=== PATIENT | female | born 1955 | race Caucasian/White ===

== ENCOUNTER 2017-03-09 12:39 | Inpatient (IN) | payer MEDICARE ==
[~2017-03-09] VITALS: Ht 162.6 cm; Wt 99.9 kg
--- NOTE | ~2017-03-09 | DS ---
PATIENT:BIA SMILEY :57 MEDICAL RECORD: [id number] DISCHARGE SUMMARY ADMISSION DATE: 03/10/17 DISCHARGE DATE: 03/12/17 DISCHARGE SUMMARY PROBLEM LIST: 1. Angina. 2. Coronary artery disease. 3. Percutaneous transluminal coronary angioplasty stent left anterior descending this admission. 4. Hypertension. 5. Hyperlipidemia. HOSPITAL COURSE: The patient presents with anginal symptomatology. She was found to have critical disease of the left anterior descending and underwent successful percutaneous transluminal coronary angioplasty stent of the left anterior descending. PLAN: She was discharged home with the addition of aspirin, Plavix, and Pravachol to her medical regimen. She will follow up with [facility] in one month. ZULEMA PALMA MD CC: [id number] DICTATION DATE: 03/12/172149 MANAGER URGENT CARE: DAPHNIE 03/12/172149 DIS IN 03/12/17 [facility] [address] [place] [address]
--- NOTE | ~2017-03-09 | HEMODYNAMI ---
PATIENT:BIA SMILEY MEDICAL RECORD: [id number] : 57 LOCATION:[facility] [address] [place], [place] [address]T# [id number] ADMISSION DATE: 03/09/17 Generatedon:03/10/201710:52 Patient name: BIA SMILEY Patient #: [id number] SSN: DO B: 1955 Date of study: 03/10/2017 Page: Of Hemodynamic Procedure Report Patient Data Patient Demographics Procedure consent was obtained First Name: BIA Gender: Female Last Name: SHERICE : 1955 [facility] Initial: M Age: 61 year(s) Patient #: [id number] Race: Unknown Additional ID: [id number] Contact details Address: [address] [place] [address] State: [place] City: [place] Zip code: [address] Past Medical History Allergies Allergen Reaction Date Comments Reported Sulfa drugs 03/10/2017 Admission Admission Data Admission Date: 03/09/2017 Admission Time: 14:55 Room #: [facility]0 Height (in.): 64 BSA: 2.02 (m2) Height (cm.): 162.56 BMI: 37.09 (kg/m2) Weight (lbs.): 216.05 Weight (kg.): 98 Lab Results Lab Result Date: 03/10/2017 Lab Result Time: 0:00 Biochemistry Name Units Result Min Max BUN mg/dl 18 --(---*)-- 7 18 CK-MB ng/ml 0.4 --(*---)-- 0 3.6 Creatinine mg/dl 1 --(--*-)-- 0.6 1.3 Creatinine l 42 --(*---)-- 21 215 Kinase Troponin l ng/ml 0.017 --(-*--)-- 0 0.06 CBC Name Units Result Min Max Hemoglobin g/dl 12.7 -*(----)-- 13.5 17.5 Procedure Procedure Types Cath Procedure Diagnostic Procedure [facility] w/Coronaries PCI Procedure Coronary Stent Initial Miscellaneous Procedures Moderate Sedation up to 30 minutes Procedure Description Procedure Date Procedure Date: 03/10/2017 Procedure Start Time: 9:58 Procedure End Time: 10:23 Procedure Staff Name Function Juwan Jamison RT Monitor Jonathan Snell RN Office Rep Chris Gee RT Scrub Twan Sandoval MD Performing Physician Christin Dominguez RN Nurse Procedure Data Cath Procedure Fluoroscopy Diagnostic fluoroscopy Total fluoroscopy Time: 5.4 time: 5.4 min min Diagnostic fluoroscopy Total fluoroscopy dose: dose: 1327 mGy 1327 mGy Contrast Material Contrast Material Type Amount (ml) Isovue 300 183 Entry Location Entry Primary Successful Side Size Upsize Upsize Entry Closure Erickson ccessful Closure Location (Fr) 1 (Fr) 2 (Fr) Remarks Device Remarks Radial Right 6 Fr Mechanical artery Short Compression Femoral Right 5 Fr 6 Fr Exoseal artery Short Estimated blood loss: 10 ml Diagnostic catheters Device Type Used For End Catheter Placement Diagnostic Terumo 5Fr Procedure Redding 110cm catheter Cordis 5Fr Pigtail Procedure Catheter (MP) Cordis 5Fr JL 4.0 Procedure Catheter (MP) Cordis 5Fr 3DRC Catheter Procedure (MP) Procedure Complications No complications Procedure Medications Medication Administration Route Dosage Oxygen NC 2 l/min Heparin Flush Bag added to field 2 bags (1000units/500ml NS) Lidocaine 2% added to field 20 Radial Cocktail added to field 1 syringe (Verapomil 2mg/Nitro 400mcg/Heparin 1500units) Radial Cocktail I.A. 1 syringe (Verapomil 2mg/Nitro 400mcg/Heparin 1500units) Versed I.V. 1 mg Fentanyl I.V. 50 mcg Versed I.V. 1 mg Fentanyl I.V. 50 mcg Versed I.V. 1 mg Fentanyl I.V. 50 mcg Heparin Bolus I.V. 4000 units Lopressor I.V. 5 mg Plavix P.O. 75 mg Morphine I.V. 4 mg Zofran I.V. 4 mg Integrilin (Bolus I.V. 9 ml 2mg/ml) Integrilin (Bolus wasted 1 ml 2mg/ml) unlisted medication Hemodynamics Rest BSA: 2.02 (m2) HGB: 12.7 (g/dl) O2 Consumption: Estimated: 221.91 (ml/min) O2 Co nsumption indexed: Estimated:109.86 (ml/min/m) Heart Rate: 110 (bpm) Pressure Samples Time Site Value (mmHg) Purpose Heart Use Rate(bpm) 10:08 AO 141/83(107) Snapshot 107 Snapshots Pre Cath Intra NCS Post Cath Vital Signs Time Heart Resp SPO2 NIBP (mmHg) Rhythm Pain Status Sedation Rate (ipm) (%) Level (bpm) 9:37:22 109 [address] 0 (11) , No 10(A) pain 9:40:22 106 16 98 185/153(167) ST 4 (11) , 10(A) Distressing 9:44:42 107 13 97 197/119(152) ST 0 (11) , No 10(A) pain 9:49:07 106 14 98 194/126(156) ST 0 (11) , No 10(A) pain 9:53:31 103 14 96 176/114(139) ST 0 (11) , No 10(A) pain 9:57:47 108 15 98 191/122(146) ST 0 (11) , No 9(A) pain 10:02:03 112 15 96 172/111(128) ST 0 (11) , No 9(A) pain 10:06:17 109 14 98 162/123(140) ST 0 (11) , No 9(A) pain 10:10:29 100 14 100 166/110(148) ST 0 (11) , No 9(A) pain 10:15:28 [address] 0 (11) , No 9(A) pain 10:15:46 100 20 97 189/144(175) ST 0 (11) , No 10(A) pain 10:18:03 101 18 98 192/145(162) ST 0 (11) , No 10(A) pain 10:22:26 100 11 97 210/145(179) ST 0 (11) , No 10(A) pain 10:31:22 97 25 96 214/156(183) ST 4 (11) , 10(A) Distressing 10:38:20 97 16 96 199/136(164) ST 4 (11) , 10(A) Distressing 10:41:59 96 23 97 181/120(156) ST 1 (11) , 10(A) Very mild Medications Time Medication Route Dose Verified Delivered Reason Note s Effectiveness by by 9:34:57 Oxygen NC 2 l/min Twan Christin Per physician Jaime Dominguez RN 9:35:05 Heparin Flush added 2 bags Twan Trent used for Bag to Jaime Sandoval MD procedure (1000units/500ml field NS) 9:35:15 Lidocaine 2% added 20ml Twan Twan used for to vial Jaime Sandoval MD procedure field 9:35:37 Radial Cocktail added 1 Twan Trent used for (Verapomil to syringe Jaime Sandoval MD procedure 2mg/Nitro field 400mcg/Hepari 9:50:18 Versed I.V. 1 mg Twan Christin for sedation Jaime Dominguez RN 9:50:25 Fentanyl I.V. 50 mcg Twan Christin for sedation Jaime Dominguez RN 9:52:27 Versed I.V. 1 mg Twan Christin for sedation Jaime Dominguez RN 9:52:41 Fentanyl I.V. 50 mcg Twan Christin for sedation Jaime Dominguez RN 9:54:55 Versed I.V. 1 mg Twan Christin for sedation Jaime Dominguez RN 9:56:04 Fentanyl I.V. 50 mcg Twan Christin for sedation Jaime Dominguez RN 9:58:36 Radial Cocktail I.A. 1 Twan Trent for (Verapomil syringe Jaime Sandoval MD vasodilation 2mg/Nitro 400mcg/Hepari 10:05:13 Heparin Bolus I.V. 4000 Twan Christin for dose units Jaime Dominguez RN anticoagulation verified wt dr sandoval 10:06:43 Lopressor I.V. 5 mg Twan Christin Per physician Jaime Dominguez RN 10:17:04 Plavix P.O. 75 mg Twan Christin for Jaime Dominguez RN antiplatelet therapy 10:35:56 Morphine I.V. 4 mg Twan Christin Per physician Jaime Dominguez RN 10:37:13 Zofran I.V. 4 mg Twan Christin Per physician Jaime Dominguez RN 10:43:22 Integrilin I.V. 9 ml Twan Christin Per physician (Bolus 2mg/ml) Jaime Dominguez RN 10:43:30 Integrilin wasted 1 ml Twan Christin Per physician (Bolus 2mg/ml) Jaime Dominguez RN 10:48:12 pt condition pt r eports feeling better at this time, reports significant decrease in chest pain, is no longer anxious. pt is not diaphoretic at this time. physician at bedside and aware of pt improved condition. pt will be monitored in PCR for 1 hour following procedure, prior to transfer to floor. Procedure Log Time Note 9:10:59 Jonatahn Snell RN sent for patient. Start room use. 9:17:52 Diagnostic Cath status Urgent 9:17:56 ACC Patient presents with Unstable Angina CCS Anginal Class 3--Marked limitation of physical activity, angina occurs with ordinary activity.. 9:18:07 Time tracking: Regular hours 9:18:12 Plan of Care:Hemodynamics will remain stable., Cardiac rhythm will remain stable., Comfort level will be maintained., Respiratory function will remain adequate., Patient/ family verbilizes understanding of procedure., Procedure tolerated without complication., Recovers from procedure without complications.. 9:18:50 Lab Result : Creatinine Kinase 42 l 9:18:50 Lab Result : Troponin l 0.017 ng/ml 9:18:50 Lab Result : Hemoglobin 12.7 g/dl 9:18:50 Lab Result : BUN 18 mg/dl 9:18:50 Lab Result : Creatinine 1 mg/dl 9:18:50 Lab Result : CK-MB 0.4 ng/ml 9:25:03 Patient Height : 162.56 cm 9:25:07 Patient Weight : 98 kg 9:26:28 Warm blankets applied, and satnam hugger turned on for patient comfort. 9:26:28 Patient received from PCU to CCL 2 Alert and oriented. Tansferred to table in Supine position. 9:26:29 Correct patient and procedure confirmed by team. 9:26:30 ECG and BP/O2 sat monitors applied to patient. 9:26:30 Signed procedure consent form obtained from patient. 9:34:57 Oxygen 2 l/min NC was administered by Christin Dominguez RN; Per physician; 9:35:05 Heparin Flush Bag (1000units/500ml NS) 2 bags added to field was administered by Twan Sandoval MD; used for procedure; 9:35:15 Lidocaine 2% 20ml vial added to field was administered by Twan Sandoval MD; used for procedure; 9:35:37 Radial Cocktail (Verapomil 2mg/Nitro 400mcg/Heparin 1500units) 1 syringe added to field was administered by Twan Sandoval MD; used for procedure; 9:35:39 Vital chart was started 9:43:04 Baseline sample Acquired. 9:43:12 Rhythm: sinus tachycardia 9:43:13 Full Disclosure recording started 9:43:25 H&P Date Dictated: 03/10/2017 Within 30 days and on chart.. 9:43:26 Pre-op teaching completed and patient verbalized understanding. 9:43:26 Pre-procedure instructions explained to patient. 9:43:29 Family in patients room. 9:43:31 Patient NPO since Midnight. 9:43:33 Is the patient allergic to Iodine/contrast media? No. 9:43:43 Patient allergic to Sulfa drugs 9:43:47 Is patient on blood thinner?Yes 9:43:49 ACC The patient was administered the following blood thiners within the last 24 hours: ACCPlavix 9:43:51 Patient diabetic? Yes. 9:43:53 If diabetic: On Metformin? Yes 9:43:55 If on Metformin: Last Dose? 03/08/2017 9:43:57 Patient not . Patient is over age 56. 9:44:00 Previous problem with sedation/anesthesia? No ? 9:44:02 Snore? Yes 9:44:03 Deviated septum? No 9:44:03 Sleep apnea? No 9:44:04 Opens mouth fully? Yes 9:44:05 Sticks out tongue? Yes 9:44:06 Airway obstruction? No ? 9:44:09 Dentures? Yes IN 9:44:12 Pre procedure: right dorsailis pedis pulse 1+ Palpable, but thready & weak; easily obliterated 9:44:27 Modified Frankie's test Ulnar < 7 seconds 9:44:32 Patient pain scale 4/10 Physician observed.. 9:44:48 IV patent on arrival in left antecubital with 0.9% NaCl at KVO. 9:45:04 Lab results completed and on chart. 9:45:08 Right Radial & Right Groin area was prepped with chlora-prep and draped in sterile fashion 9:45:09 Sharps counted by scrub and verified by R.N. :45:09 Alarms reviewed by R. N. 9:45:14 Use device set Radial Dx 9:45:16 Tegaderm 4 x 4 opened to sterile field. 9:45:17 Acist Manifold opened to sterile field. 9:45:17 Acist Hand Control opened to sterile field. 9:45:18 Acist Syringe opened to sterile field. 9:45:19 Bag Decanter opened to sterile field. 9:45:19 Medline Cath Pack opened to sterile field. 9:45:20 St Gary 260cm J .035 wire opened to sterile field. 9:45:20 Terumo 6Fr Slender Glidesheath opened to sterile field. 9:45:21 MBrace Wrist Support opened to sterile field. 9:48:37 Zero performed for pressure channel P1 9:50:08 --------ALL STOP TIME OUT------ 9:50:09 Final Timeout: patient, procedure, and site verified with staff and physician. All members of the team are in agreement. 9:50:11 Right Radial & Right Groin site verified by team. 9:50:14 Physical assessment completed. ASA score P 2 - A patient with mild systemic disease as per Twan Sandoval MD. 9:50:16 Sedation plan: IV Moderate Sedation Versed, Fentanyl 9:50:18 Versed 1 mg I.V. was administered by Christin Dominguez RN; for sedation; 9:50:25 Fentanyl 50 mcg I.V. was administered by Christin Dominguez RN; for sedation; 9:52:27 Versed 1 mg I.V. was administered by Christinchapincito Dominguez RN; for sedation; 9:52:41 Fentanyl 50 mcg I.V. was administered by Christinchapincito Dominguez RN; for sedation; 9:54:55 Versed 1 mg I.V. was administered by Christinchapincito Dominguez RN; for sedation; 9:56:04 Fentanyl 50 mcg I.V. was administered by Christinchapincito Dominguez RN; for sedation; 9:57:57 Procedure started. 9:58:00 Local anesthetic to right radial artery with Lidocaine 2% by Twan Sandoval MD.INITIAL ACCESS ONLY 9:58:29 A 6 Fr Short sheath was inserted into the Right Radial artery 9:58:36 Radial Cocktail (Verapomil 2mg/Nitro 400mcg/Heparin 1500units) 1 syringe I.A. was administered by Twan Sandoval MD; for vasodilation; 9:58:42 A Diagnostic Terumo 5Fr Redding 110cm catheter was advanced over the wire and used for Procedure. 9:59:26 Unable to advance catheter due to radial loop. 9:59:33 Catheter removed. 10:00:12 Terumo 5Fr Marathon Sheath opened to sterile field. 10:00:19 Local anesthetic to right femoral artery with Lidocaine 2% by Twan Sandoval MD.ADDITIONAL ACCESS 10:00:41 A 5 Fr sheath was inserted into the Right Femoral artery 10:00:43 Use device set Multipack Set 10:00:45 Diagnostic Infinity 5Fr Multipack catheter opened to sterile field. 10:00:54 A Cordis 5Fr Pigtail Catheter (MP) was advanced over the wire and used for Procedure. 10:01:29 LV angiography performed. 10:01:30 LV gram done using LARA 10:01:34 EF : 55 % 10:01:37 Injector settings: Ml/sec: 10, Volume: 20, 10:01:38 Catheter removed. 10:02:00 A Cordis 5Fr JL 4.0 Catheter (MP) was advanced over the wire and used for Procedure. 10:02:16 LCA angiography performed. 10:02:37 Catheter removed. 10:03:22 Terumo 6Fr Marathon Sheath opened to sterile field. 10:03:29 TabTale BasixCompak Inflation Kit opened to sterile field. 10:03:29 Salazar Whisper J 300cm 0.014 guide wire opened to sterile field. 10:03:42 Sheath upsized to a 6 Fr Short. 10:03:47 A Cordis 5Fr 3DRC Catheter (MP) was advanced over the wire and used for Procedure. 10:04:39 RCA angiography performed. 10:04:55 Catheter removed. 10:05:11 ACC PCI Site: mLAD has 95% stenosis. 10:05:13 Heparin Bolus 4000 units I.V. was administered by Christin Dominguez RN; for anticoagulation; dose verified wtih dr sandoval 10:05:13 ACC Pre-intervention MAYI Flow is 3. 10:05:34 6 Fr XBLAD 3.5 guide catheter was inserted over the wire 10:05:40 Cordis 6FR XBLAD 3.5 guide catheter opened to sterile field. 10:06:19 Whisper wire advanced. 10:06:43 Lopressor 5 mg I.V. was administered by Christin Dominguez RN; Per physician; 10:08:12 Wire advanced across lesion. 10:09:26 Inflation number: 1 A CoinHoldings Rx 3.5 x 20 balloon was prepped and advanced across the Mid LAD, then inflated to 7 PENNY for 0:10 (min:sec). 10:09:50 Multiple inflations made at 7 Atms. 10:10:22 Balloon removed over the wire. 10:12:02 Inflation Number: 2 A Medtronic Resolute 3.5 X 38 stent was prepped and advanced across the Mid LAD. The stent was deployed at 17 EPNNY for 0:10 (min:sec). 10:13:07 Stent catheter was removed intact over wire. 10:15:07 Inflation Number: 3 A Medtronic Resolute 3.5 X 12 stent was prepped and advanced across the Mid LAD. The stent was deployed at 15 PENNY for 0:10 (min:sec). 10:15:20 Wire removed. 10:15:20 Stent catheter was removed intact over wire. 10:15:21 Guide catheter removed. 10:15:23 ACC Post-intervention MAYI Flow is 3. 10:15:34 Terumo TR Band Standard opened to sterile field. 10:15:35 Cordis 6Fr Exoseal opened to sterile field. 10:15:42 Sheath removed intact; hemostasis achieved with Exoseal to the Right Femoral artery. 10:15:46 Procedure ended.(Physican Out) 10:17:04 Fluoroscopy time 05.40 minutes. 10:17:04 Plavix 75 mg P.O. was administered by Christin Dominguez RN; for antiplatelet therapy; 10:17:11 Fluoroscopy dose: 1327 mGy 10:17:11 Flurop Dose total: 1327 10:17:24 Contrast amount:Isovue 300 183ml. 10:17:26 Sharps counted by scrub and verified by R.N. 10:17:42 Sheath removed intact; hemostasis achieved with Mechanical Compression to the Right Radial artery. 10:17:46 TR band inflated with 12cc of air. 10:18:02 Insertion/operative site no bleeding no hematoma. 10:18:05 Post-op/insertion site Right Femoral artery dressed using a 4 x 4 and Tegaderm. 10:18:06 Post Procedure Pulses reassessed and unchanged 10:18:10 Post-procedure physical assessment completed. ASA score P 2 - A patient with mild systemic disease as per Twan Sandoval MD. 10:18:12 Post procedure rhythm: unchanged. 10:18:15 Estimated blood loss: 10 ml 10:18:16 Post procedure instruction explained to patient.Patient verbalizes understanding. 10:18:17 Patient needs reinforcement of post procedure teaching. 10:18:38 Procedure type changed to Cath procedure, Diagnostic procedure, LHC, LHC w/Coronaries, PCI procedure, Coronary Stent Initial, Miscellaneous Procedures, Moderate Sedation up to 30 minutes 10:18:42 Procedure Complication : No complications 10:18:45 Procedure and supply charges have been captured, reviewed, submitted and are correct. 10:22:46 See physician's report for complete and final results. 10:22:46 Vital chart was stopped 10:22:50 Report given to PCU. 10:22:53 Patient transfered to PCU with Bed. 10:22:59 Full Disclosure recording stopped 10:22:59 Procedure ended. 10:23:11 End room use (Document Last) 10:31:44 Pt began to complain of chest pain and pressure. Expressing she very anxious. Physician made aware and observed at bedside. EKG called for. 10:35:56 Morphine 4 mg I.V. was administered by Christin Dominguez RN; Per physician; 10:37:13 Zofran 4 mg I.V. was administered by Christin Dominguez RN; Per physician; 10:38:55 EKG completed. 10:43:22 Integrilin (Bolus 2mg/ml) 9 ml I.V. was administered by Christin Dominguez RN; Per physician; 10:43:30 Integrilin (Bolus 2mg/ml) 1 ml wasted was administered by Christin Dominguez RN; Per physician; 10:48:12 pt condition was administered by ; ; pt reports feeling better at this time, reports significant decrease in chest pain, is no longer anxious. pt is not diaphoretic at this time. physician at bedside and aware of pt improved condition. pt will be monitored in PCR for 1 hour following procedure, prior to transfer to floor. Intervention Summary Intervention Notes Time ActionType Lesion and Equipment Action# Pressure Duration Attributes Used 10:09:26 Inflate Mid LAD Mozec Rx 1 7 00:10 balloon 3.5 x 20 balloon 10:12:02 Place stent Mid LAD Medtronic 2 17 00:10 Resolute 3.5 X 38 stent 10:15:07 Place stent Mid LAD Medtronic 3 15 00:10 Resolute 3.5 X 12 stent Device Usage Item Name Manufacture Quantity Catalog Hospital Part Current Minimal Lot# / Number Charge Number Stock Stock Serial# Code Tegaderm 4 3M 1 [id number] [id number] 5 x 4 Acist Hand Acist 1 23150 693379 926584 632355 5 Control Medical Systems Inc Acist Acist 1 17200 623871 575462 278532 5 Manifold Medical Systems Inc Acist Acist 1 52315 844643 181207 687928 20 Syringe Medical Systems Inc Medline Cardinal 1 [id number] 547021 82827 864792 5 Cath Pack Health Bag Microtek 1 2002S 311438 06945 492608 5 Baton Inc. Terumo 6Fr Terumo 1 [id number] 179480 211582 614257 [address] St Gary 1 256783 654397 031053 476066 30 260cm J .035 wire MBrace Advanced 1 140-0250-00 341674 96361 522845 5 Wrist Vascular Support Dynamics Diagnostic Terumo 1 40-7501 236986 732776 126725 5 Terumo 5Fr Redding 110cm catheter Terumo 5Fr Terumo 1 [id number] 461558 657163 395149 40 Marathon Sheath Diagnostic Cardinal 1 [id number] 068121 15808 861581 30 Infinity Health 5Fr Multipack catheter Cordis 5Fr Cardinal 1 [id number] 5 Pigtail Health Catheter (MP) Cordis 5Fr Cardinal 1 593955 5 JL 4.0 Health Catheter (MP) Terumo 6Fr Terumo 1 [id number] 921867 252526 247330 40 Marathon Sheath [facility] 1 [id number] 385491 324834 996669 5 Whisper J Vascular 300cm 0.014 guide wire Merit Merit 1 [id number] 274974 257345 665989 15 BLOVES Medical Inflation Kit Cordis 5Fr Cardinal 1 879367 5 3DRC Health Catheter (MP) Cordis 6FR Cardinal 1 [id number] 582403 553194 472690 10 XBLAD 3.5 Health guide catheter Mozec Rx Cardinal 1 [id number] 641206 24300 963031 5 UMOA76 3.5 x 20 Health balloon Medtronic Medtronic 1 [id number] 798927 231683 0 [id number] Resolute 3.5 X 38 stent Medtronic Medtronic 1 [id number] 899113 570200 9 [id number] Resolute 3.5 X 12 stent Terumo TR Terumo 1 [id number] 986988 572641 199385 40 Band Standard Cordis 6Fr Cardinal 1 [id number] 636046 288122 148316 10 GridIron Software Signature Audit Meta Stage Time Signature Unsigned Intra-Procedure 03/10/2017 Juwan Jamison RT(R) 10:23:30 AM RT(R) 03/10/2017 10:28:32 AM Intra-Procedure 03/10/2017 Juwan Jamison 10:51:59 AM RT(R) Signatures Monitor : Juwan Jamison RT Signature : Date : Time : [id number] [place] [address]
[2017-03-09 13:08] LABS: BASOPHILS 0.2 % (0-2); EOSINOPHILS 0.8 % (0-7); HEMATOCRIT 38.9 % (36.0-48.0); HEMOGLOBIN 12.7 g/dL (12-16); IMMATURE GRANULOCYTES 0.5 % (0-5); LYMPHOCYTES 30.5 % (15-50); MCH 28.3 pg (26.0-34.0); MCHC 32.6 g/dL (31.0-37.0); MCV 86.6 fL (80.0-100.0); MEAN PLATELET VOLUME 9.8 fL (7.4-10.4); MONOCYTES 5.5 % (2-11); NEUTROPHILS 62.5 % (40-80); PLATELET COUNT 336 10x3/uL (130-400); RBC 4.49 10x6/uL (4.00-5.40); RDW 14.7 % (11.5-14.5); WBC 11.7 10x3/uL (4.8-10.8)
[2017-03-09 13:20] LABS: ALBUMIN 3.3 g/dL (3.4-5.0); ALKALINE PHOSPHATASE 105 U/L (46-116); ALT (SGPT) 18 U/L (10-68); BILIRUBIN - TOTAL 0.27 mg/dL (0.2-1.3); CALC OSMOLALITY 284 mosm/kg (275-300); CALCIUM 9.2 mg/dL (8.5-10.1); CARBON DIOXIDE 23.5 mmol/L (21.0-32.0); CHLORIDE - SERUM 105 mmol/L (98-107); GLUCOSE 185 mg/dL (74-106); POTASSIUM - SERUM 4.2 mmol/L (3.5-5.1); SODIUM 139 mmol/L (136-145); UREA NITROGEN 18 mg/dL (7-18); eGFR NON AFRICAN AMERICAN 60 mL/min (90-120)
[2017-03-09 13:32] LABS: CHOL - HDL RATIO 4.9 ratio (2.3-4.1); CHOLESTEROL, TOTAL 222 mg/dL (0-200); CKMB 0.4 U/L (0.0-3.6); CREATINE KINASE 42 UL (21-215); HDL CHOLESTEROL 45 mg/dL (32-96); LDL CHOLESTEROL 127 mg/dL (0-100); LDL-HDL RATIO 2.8 ratio (1.5-3.5); TRIGLYCERIDE 253 mg/dL (30-200); TROPONIN-I < 0.017 ng/mL (0.000-0.060)
--- NOTE | 2017-03-09 15:25 | NUR ---
RECEIVED PT TO ROOM 2119 ADMITTED FOR CHEST PAIN DENIES PAIN AT THIS TIME AAOX4 RESP UNLABORED SKIN W/D COLOR WNL SALINE LOCK INTACT TO LAC WITH 20 GA IV CATHETER WITH OCCLUSIVE DRSG SITE FREE OF REDNESS OR EDEMA
[2017-03-09] MEDS ORDERED: COREG25 MG PO (15:30)
[2017-03-09] MEDS ORDERED: GLUCOTROL 5 MG T5 MG PO (15:31)
[2017-03-09] MEDS ORDERED: KLONOPIN1 MG PO (15:32)
[2017-03-09] MEDS ORDERED: GLUCOPHAGE500 MG PO (15:32)
[2017-03-09] MEDS ORDERED: OMEPRAZOLE (15:34)
[2017-03-09] MEDS ORDERED: DIOVAN320 MG PO (15:34)
[2017-03-09] MEDS ORDERED: PROZAC20 MG PO (15:34)
[2017-03-09] MEDS ORDERED: TRESIBA FL100 UNIT/1 SC (15:36)
[2017-03-09 15:37] VITALS: BP 173/98
[2017-03-09 15:51] VITALS: BP 173/98; BMI 37.0
[2017-03-09 16:00] VITALS: BP 173/98
[2017-03-09 19:00] VITALS: BP 156/95
--- NOTE | 2017-03-09 19:15 | NUR ---
INITIAL ROUNDS MADE. PT SITTING UP IN BED WATCHING TV WITH FRIEND AT BEDSIDE. NO NEEDS OR C/O VOICED AT THIS TIME. CALL LIGHT IN REACH. WILL CONT TO MONITOR.
[2017-03-10] VITALS (15 sets, daily range): BP systolic 112–177; BP diastolic 66–109
--- NOTE | 2017-03-10 03:08 | NUR ---
QUALITY ANALYST/TECHNICAL WRITER AT BEDSIDE FOR VS. NEEDS ADDRESSED AT THIS TIME. CALL LIGHT IN REACH. WILL CONT TO MONITOR.
--- NOTE | 2017-03-10 07:10 | NUR ---
AM ROUNDS- PT IN BED, DENIES ANY NEEDS AT THIS TIME. BED LOW AND WHEELS LOCKED, LT AC SL AT THIS TIME. BEDSIDE RAILS X2, CALL LIGTH IN REACH, NAD NOTED, WILL CONTINUE TO MONITOR.
--- NOTE | 2017-03-10 09:11 | NUR ---
PRE-OP MEDS GIVEN AT THIS TIME. PT DENIES ANY NEEDS AT THIS TIME. CALL LIGHT IN REACH, FAMILY AT BEDSIDE, MIKO BOLAÑOS, WILL CONTINUE TO MONTOR.
--- NOTE | 2017-03-10 09:23 | NUR ---
PT TRANSFERED TO MECHANICAL DETAILER, VIA BED, NAD NOTED.
--- NOTE | 2017-03-10 11:40 | NUR ---
1100 RECIEVED TO ROOM VIA STRETCHER FROM PALEOBOTANIST WITH REPORT OF 2 STENTS TO LAD. TR BAND TO R/WRIST CDI. 6 FR EXOSEAL R/GROIN CDI NO BLEEDING NO HEMATOMA NOTED. BP 210/129 WITH PATIENT CLAMMY AND DIAPHORETIC. HR 97. COLD CLOTH TO FACE NAUSEA IS DENIED. FINGERSTICK BLOOD SUGAR OF 210 1115 BP REMAINS ELEVATED AT 200/[address] PALMA NOTIFIED FOR ORDERS WITH 0.2 MG CLONIDINE GIVEN ORAL AT THIS TIME. R/GROIN CDI NO BLEEDING NO HEMATOMA NOTED. TR BAND R/WRIST CDI PATIENT DENIED NAUSEA.WILL MONITOR CLOSE
--- NOTE | 2017-03-10 11:45 | NUR ---
1145 HEMATOMA NOTED TO R/GROIN WITH ANTELMO NOTIFIED FEMSTOP TO R/GROIN WITH PULSES MARKED.
--- NOTE | 2017-03-10 12:00 | NUR ---
1205 PATIENT COMPLAINS OF NAUSEA AND CHEST PAIN WITH HR UP TO 106 DR PALMA NOTIFIED WITH EKG COMPLETE AND AT BEDSIDE. ORDERS RECIEVED FOR BYSTOLIC ORAL AND HYDRALIZINE 10 IV. 1230 10 MG HYDROLIZINE GIVEN IV PUSH WILL HOLD BYSTOLIC TO MONITOR RESULTS OF IV MED. ORDERS FOR CVICU BED WITH KATIE NOTIFIED.
--- NOTE | 2017-03-10 13:02 | NUR ---
1245 2 MORPHINE GIVEN IVP ORDERED. REPORT CALLED TO CVICU
--- NOTE | 2017-03-10 13:15 | NUR ---
REPORT CALLED TO WILL BARBER TRANSFERED IN THE COMPUTER.
--- NOTE | 2017-03-10 18:06 | NUR ---
PT FAMILY AT BEDSIDE FOR VISITATION. HAS BEEN SLEEPING. NO DISTRESS. VITAL SIGNS STABLE. HAS BEEN UP TO TOILET. DINNER TRAY PROVIDED AND AFTERNOON MEDICATIONS GIVEN.
--- NOTE | 2017-03-10 18:20 | NUR ---
RIGHT GROIN DRESSING INTACT. NO BLEEDING NOTED, DOES HAVE BRUISING. AREA IS SOFT.
--- NOTE | 2017-03-10 19:00 | NUR ---
REPORT RECEIVED AND ASSDESSMENT COMPLETED. SEE FLOWSHEET FOR FULL DETAILS. PT HAD LAD STENT X 2 TODAY. PT WAS HYPERTENSIVE WITH SYSTOLIC B/P OVER 200, AND WAS DYPHRETIC COLD AND CLAMMY. FSBS CAME BACK 200, PT GIVEN METOPROLOL, CLONADINE, AND HYDRALAZINE TO LOWER B/P. B/P NOW AT 121/79. PT SKIN IS WARM AND DRY. PT HAS INCISION IN RIGHT GROIN THAT IS CDI. NO SIGNS OF COMPLICATIONS AT THIS TIME. WILL CONTINUE TO MONITOR. VSS.
--- NOTE | 2017-03-10 21:13 | NUR ---
2100 MEDS GIVEN. NO CHANGES IN STATUS AT THIS TIME. FAMILY AT BEDSIDE. UPDATE GIVEN. VSS. WILL CONTINUE TO MONITOR. B/P CURRENTLY AT 128/78.
--- NOTE | 2017-03-10 23:08 | NUR ---
REASSESSMENT COMPLETED. SEE FLOWSHEET FOR FULL DETAILS. NO OTHER CHANGES FROM PREVIOUS ASSESSMENT. ASSISTED PT TO BATHROOM. ONE VOID 300 ML. ALL PULSES STILL PRWESENT AT RECHECK. GROIN DRESSING STILL CDI. VSS. WILL MONITOR.
[2017-03-11] VITALS (17 sets, daily range): BP systolic 108–159; BP diastolic 61–93; Ht 162.6 cm; Wt 99.9 kg
--- NOTE | 2017-03-11 01:01 | NUR ---
NO CHANGES IN PATIENT STATUS AT THIS TIME. VSS. WILL CONTINUE TO MONITOR
--- NOTE | 2017-03-11 03:00 | NUR ---
REASSESSMENT COMPLETED. SEE FLOWSHEET FOR FULL DETAILS. NO OTHER CHANGES IN STATUS AT THIS TIME. VSS. WILL CONTINUE TO MONITOR
--- NOTE | 2017-03-11 05:12 | NUR ---
PT HAS BEGAN COUGHING AND FEELING NAUSEATED. B/P ELEVATED TO 199/125 BUT RAPIDLY DECREASED AFTER COUGHING CEASED. B/P NOW IN THE 150S SYSTOLIC. HYDRALAZINE GIVEN. NIBP SET TO TAKE EVERY 10 MINUTES. WILL MONITOR CLOSELY FOR FURTHER COMPLICATIONS.
--- NOTE | 2017-03-11 07:00 | NUR ---
PT REPORT REC'D, PT CARE ASSUMED. PT AAOX4 SITTING UP IN BED, NO C/O PAIN, VSS, ROOM AIR. LEFT AC PIV WITH FLUIDS INFUSING, SEE FLOW SHEET. PT UP TO BATHROOM NEEDED. FREQUENT HACKING COUGH, PT STATES "THIS COUGH HAS BEEN GOING THROUGH MY FAMILY FOR THE LAST 2-3 WEEKS, ONE HAD STREP" ASKED PT IF SHE HAD BEEN TO THE DOCTOR TO GET THIS CHECKED OUT, PT DENIED GOING TO THE DOCTOR FOR THIS PREVIOUSLY. RIGHT GROIN INCISION, DRESSING CDI, NO SIGNS OF HEMATOMA. SHIFT ASSESSMENT COMPLETED, SEE FLOW SHEET. ROOM FREE OF CLUTTER, CALL LIGHT IN REACH, WILL CONTINUE TO MONITOR PT.
--- NOTE | 2017-03-11 08:20 | NUR ---
DR. PALMA AT THE BEDSIDE
--- NOTE | 2017-03-11 08:45 | NUR ---
SALINE LOCKED LEFT AC PIV.
--- NOTE | 2017-03-11 08:45 | NUR ---
X-RAY AT THE BEDSIDE
--- NOTE | 2017-03-11 09:00 | NUR ---
PT FAMILY AT THE BEDSIDE, ALL QUESTIONS ANSWERED, VSS, WILL CONTINUE TO MONITOR PT.
--- NOTE | 2017-03-11 11:00 | NUR ---
PT RESTING WITH EYES CLOSED, NO C/O PAIN, VSS, REASSESSMENT COMPLETED, SEE FLOW SHEET. ROOM FREE OF CLUTTER, CALL LIGHT IN REACH, WILL CONTINUE TO MONITOR PT.
--- NOTE | 2017-03-11 11:13 | NUR ---
* Is the patient Alert and Oriented? Yes 0 * How many steps to enter\exit or inside your home? 3-4 0 * PCP Dr. Santana 0 * Pharmacy [facility] in [place] 0 * Preadmission Environment Home with Family 0 * ADLs Independent 0 * List name and contact numbers for known caregivers / representatives who currently or will assist patient after discharge: Alf Yoon [phone] 0 * Additional services required to return to the preadmission environment? No 0 * Can the patient safely return to the preadmission environment? Yes 0 * Has this patient been hospitalized within the prior 30 days at any hospital? No 03/11/2017 11:14 DCP: Discharge Planning Patient Name: BIA SMILEY Admission Status: ER Accout number: [id number] Admission Date: 03-10-2017 : 1955 Admission Diagnosis: Attending: VICKY Current LOS: 1 Anticipated DC Date: 03-11-2017 Planned Disposition: Home Primary Insurance: MEDICARE A & B Discharge Planning Comments: CM met with patient to assess dc plans/needs. Patient states she lives with her son, Car, & his family. She reports she is independent with all ADL's & IADL's. She does not use any assistive devices for mobility and has not had home health services in the past. At dc, she plans to return home with her family. No needs identified or verbalized at this time. Anticipate DC this afternoon. Warehouse Laborer: Kelsey Boateng
--- NOTE | 2017-03-11 12:00 | NUR ---
PT FAMILY AT THE BEDSIDE, ALL QUESTIONS ANSWERED, VSS, WILL CONTINUE TO MONTIOR PT.
--- NOTE | 2017-03-11 15:00 | NUR ---
PT RESTING WITH EYES CLOSED, NO C/O PAIN, VSS, WILL CONTINUE TO MONITOR PT.
--- NOTE | 2017-03-11 18:04 | NUR ---
NOTIFIED PTS SON SHANE SMILEY THAT PT WAS TRANSFERRING TO ROOM 2115
--- NOTE | 2017-03-11 18:04 | NUR ---
PT REPORT CALLED TO CAREY BENSON, PT TO TRANSFER TO ROOM 2116 VIA WHEELCHAIR.
--- NOTE | 2017-03-11 18:18 | NUR ---
TRANSFER FROM CVICU BY W/Chago CASAS TO ROOM. CALL LIGHT IN REACH. WILL CONT. PLAN OF CARE.
--- NOTE | 2017-03-11 19:31 | NUR ---
RESUMED CARE OF PT, LYING IN BED RESPIRATIONS EVEN AND UNLABORED ON ROOM AIR. 97 SR ON TELEMETRY. LEFT AC SALINE LOCKED, RIGHT GROIN DRESSING C/D/I. PEDAL PULSE PALPABLE. CALL LIGHT IN REACH. SEE NURSE ASSESSMENT. WILL CONTINUE TO MONITOR.
[2017-03-12] VITALS: BP 171/94
--- NOTE | 2017-03-12 01:39 | NUR ---
LYING IN BED WITH EYES CLOSED, CALL LIGHT IN REACH. WILL CONTINUE TO MONITOR.
[2017-03-12 04:00] VITALS: BP 166/92
[2017-03-12 08:12] VITALS: BP 163/94
[2017-03-12] MEDS ORDERED: PLAVIX75 MG PO (11:11)
[2017-03-12] MEDS ORDERED: PRAVACHOL40 MG PO (11:12)
[2017-03-12] MEDS ORDERED: OMEPRAZOLE20 M1 PO (11:14)
--- NOTE | 2017-03-12 13:08 | NUR ---
IV AND TELEMETRY DCD. DC PLANS GIVEN. UNDERSTANDING VOICED. ESCORTED TO CAR BY W/C.
== END 2017-03-12 13:09 | disposition home or self-care (01) | DRG 247 ==
LOC: D.ER 12:39 → D.M2 14:55 → OBSVTIME 14:55 → D.M2 14:55 → D.CVICU 03-10 12:33 → D.M2 03-11 18:05
PROVIDERS: Emergency Medicine; ADMIT Internal Medicine Interventional Cardiology
PROC: B2111ZZ Fluoroscopy of Multiple Coronary Arteries using Low Osmolar Contrast (ICD-10-PCS; 2017-03-10)
PROC: B2151ZZ Fluoroscopy of Left Heart using Low Osmolar Contrast (ICD-10-PCS; 2017-03-10)
PROC: 027035Z Dilation of Coronary Artery, One Artery with Two Drug-eluting Intraluminal Devices, Percutaneous Approach (ICD-10-PCS; principal; 2017-03-10 08:00)
PROC: 4A023N7 Measurement of Cardiac Sampling and Pressure, Left Heart, Percutaneous Approach (ICD-10-PCS; 2017-03-10 08:00)
DX: I25.119 Atherosclerotic heart disease of native coronary artery with unspecified angina pectoris (principal); I10 Essential (primary) hypertension; E78.5 Hyperlipidemia, unspecified

== ENCOUNTER 2017-03-22 17:19 | Emergency (ER) | payer MEDICARE ==
[2017-03-11 10:55] VITALS: BMI 36.7
[~2017-03-22 17:19] MED LIST: COREG25 MG PO; DIOVAN320 MG PO; GLUCOPHAGE500 MG PO; GLUCOTROL 5 MG T5 MG PO; KLONOPIN1 MG PO; OMEPRAZOLE; OMEPRAZOLE20 M1 PO; PLAVIX75 MG PO; PRAVACHOL40 MG PO; PROZAC20 MG PO; TRESIBA FL100 UNIT/1 SC
[2017-03-22 18:26] LABS: BASOPHILS 0.2 % (0-2); EOSINOPHILS 1.4 % (0-7); HEMATOCRIT 34.7 % (36.0-48.0); HEMOGLOBIN 11.1 g/dL (12-16); IMMATURE GRANULOCYTES 0.6 % (0-5); LYMPHOCYTES 37.3 % (15-50); MCV 87.6 fL (80.0-100.0); MEAN PLATELET VOLUME 9.6 fL (7.4-10.4); MONOCYTES 6.5 % (2-11); PLATELET COUNT 406 10x3/uL (130-400); RBC 3.96 10x6/uL (4.00-5.40); RDW 14.2 % (11.5-14.5); WBC 10.2 10x3/uL (4.8-10.8)
[2017-03-22 18:52] LABS: ALBUMIN 3.3 g/dL (3.4-5.0); ALKALINE PHOSPHATASE 92 U/L (46-116); ALT (SGPT) 17 U/L (10-68); CALC OSMOLALITY 279 mosm/kg (275-300); CALCIUM 9.2 mg/dL (8.5-10.1); CARBON DIOXIDE 23.9 mmol/L (21.0-32.0); CHLORIDE - SERUM 103 mmol/L (98-107); CREATININE - SERUM 0.8 mg/dL (0.6-1.3); POTASSIUM - SERUM 3.9 mmol/L (3.5-5.1); PROTEIN - SERUM 6.9 g/dL (6.4-8.2); SODIUM 140 mmol/L (136-145); UREA NITROGEN 15 mg/dL (7-18); eGFR NON AFRICAN AMERICAN 77 mL/min (90-120)
[2017-03-22 18:55] LABS: GLUCOSE 99 mg/dL (74-106)
[2017-03-22 19:07] LABS: CHOL - HDL RATIO 3.7 ratio (2.3-4.1); CHOLESTEROL, TOTAL 166 mg/dL (0-200); CKMB 2.9 U/L (0.0-3.6); CREATINE KINASE 85 UL (21-215); HDL CHOLESTEROL 45 mg/dL (32-96); LDL CHOLESTEROL 82 mg/dL (0-100); LDL-HDL RATIO 1.8 ratio (1.5-3.5); TRIGLYCERIDE 196 mg/dL (30-200)
[2017-03-22 19:12] LABS: TROPONIN-I 0.715 ng/mL (0.000-0.060)
== END 2017-03-22 19:32 | disposition home or self-care (01) ==
LOC: D.ER 17:19
PROVIDERS: Emergency Medicine
DX: R07.9 Chest pain, unspecified (principal); R14.2 Eructation; Z98.890 Other specified postprocedural states; E11.9 Type 2 diabetes mellitus without complications; Z79.4 Long term (current) use of insulin; I10 Essential (primary) hypertension; E66.9 Obesity, unspecified; R06.00 Dyspnea, unspecified; I45.10 Unspecified right bundle-branch block

== ENCOUNTER → 2017-12-14 08:31 | Outpatient (CLI) | payer MEDICARE ==
[~2017-12-14] VITALS: Ht 162.6 cm; Wt 105.7 kg
[2017-12-14 10:15] VITALS: Ht 162.6 cm; Wt 105.7 kg
== END | disposition home or self-care (01) ==
LOC: D.FANS 08:31
DX: E66.01 Morbid (severe) obesity due to excess calories (principal)

== ENCOUNTER → 2018-01-18 09:56 | Outpatient (CLI) | payer MEDICARE ==
[2017-12-14 10:15] VITALS: BMI 40.0
[2018-01-18 11:04] LABS: HEMATOCRIT 38.8 % (36.0-48.0); HEMOGLOBIN 12.9 g/dL (12-16); LYMPHOCYTES 22.9 % (15-50); MCH 27.7 pg (26.0-34.0); MCHC 33.2 g/dL (31.0-37.0); MCV 83.4 fL (80.0-100.0); MEAN PLATELET VOLUME 9.6 fL (7.4-10.4); NEUTROPHILS 74.5 % (40-80); RBC 4.65 10x6/uL (4.00-5.40); RDW 13.7 % (11.5-14.5); WBC 9.3 10x3/uL (4.8-10.8)
[2018-01-18 11:20] LABS: HELICOBACTER PYLORI IGG NEGATIVE (NEGATIVE)
[2018-01-18 11:32] LABS: PLATELET COUNT 301 10x3/uL (130-400)
[2018-01-18 11:34] LABS: ALBUMIN 3.6 g/dL (3.4-5.0); ANION GAP 16.1 mmol/L (8-16); BILIRUBIN - DIRECT 0.06 mg/dL (0.00-0.30); BILIRUBIN - INDIRECT 0.21 mg/dL (0.00-1.00); BILIRUBIN - TOTAL 0.27 mg/dL (0.2-1.3); CALCIUM 9.1 mg/dL (8.5-10.1); CARBON DIOXIDE 24.8 mmol/L (21.0-32.0); CHOL - HDL RATIO 5.6 ratio (2.3-4.1); CREATININE - SERUM 0.9 mg/dL (0.6-1.3); POTASSIUM - SERUM 3.9 mmol/L (3.5-5.1); PROTEIN - SERUM 6.9 g/dL (6.4-8.2); T4 THYROXINE 8.6 ug/dL (4.7-13.3); THYROID STIMULATING HORMONE 2.82 uIU/mL (0.36-3.74)
[2018-01-19 08:25] LABS: FOLATE (FOLIC ACID) - SERUM 15.8 ng/mL (>3.0)
== END | disposition home or self-care (01) ==
LOC: D.LAB 09:56
PROVIDERS: Surgery
DX: E11.9 Type 2 diabetes mellitus without complications (principal); I10 Essential (primary) hypertension; E66.01 Morbid (severe) obesity due to excess calories; Z01.812 Encounter for preprocedural laboratory examination

== ENCOUNTER 2018-03-03 07:00 | Outpatient (CLI) | payer MEDICARE ==
[2017-12-14 10:15] VITALS: BMI 40.0
== END 2018-03-03 09:25 ==
LOC: D.OPS 07:00 → D.RAD 08:30 → D.OPS 09:25
DX: E66.01 Morbid (severe) obesity due to excess calories (principal)

== ENCOUNTER → 2018-03-15 18:51 | Outpatient (CLI) | payer MEDICARE ==
[2017-12-14 10:15] VITALS: BMI 40.0
[~2018-03-15 18:51] MED LIST changes: +HYDROCODON-ACE1 EAC7 PO; +K-TAB10 MEQ PO; +LEVAQUIN250 MG PO; +NORVASC10 MG PO; +ZOFRAN ODT4 MG/UDTAB PO
== END | disposition home or self-care (01) ==
LOC: D.SLEEP 18:51
DX: G47.33 Obstructive sleep apnea (adult) (pediatric) (principal); Z01.812 Encounter for preprocedural laboratory examination

== ENCOUNTER → 2018-03-16 20:14 | Outpatient (CLI) | payer MEDICARE ==
[2017-12-14 10:15] VITALS: BMI 40.0
== END | disposition home or self-care (01) ==
LOC: D.MAMMO 09:00
DX: Z12.31 Encounter for screening mammogram for malignant neoplasm of breast (principal)

== ENCOUNTER 2018-03-23 07:15 | Day surgery (SDC) | payer MEDICARE ==
[~2018-03-23] VITALS: Ht 162.6 cm; Wt 104.5 kg
[~2018-03-23 07:15] MED LIST changes: -HYDROCODON-ACE1 EAC7 PO; -K-TAB10 MEQ PO; -LEVAQUIN250 MG PO; -NORVASC10 MG PO; -ZOFRAN ODT4 MG/UDTAB PO
[2018-03-23 07:33] LABS: BASOPHILS 0.2 % (0-2); EOSINOPHILS 1.4 % (0-7); HEMATOCRIT 38.4 % (36.0-48.0); HEMOGLOBIN 12.6 g/dL (12-16); IMMATURE GRANULOCYTES 0.2 % (0-5); LYMPHOCYTES 22.6 % (15-50); MCH 27.7 pg (26.0-34.0); MCHC 32.8 g/dL (31.0-37.0); MCV 84.4 fL (80.0-100.0); MEAN PLATELET VOLUME 10.3 fL (7.4-10.4); MONOCYTES 5.9 % (2-11); NEUTROPHILS 69.7 % (40-80); PLATELET COUNT 253 10x3/uL (130-400); RBC 4.55 10x6/uL (4.00-5.40); RDW 13.1 % (11.5-14.5)
[2018-03-23 07:52] LABS: ANION GAP 14.4 mmol/L (8-16); CALCIUM 8.8 mg/dL (8.5-10.1); CARBON DIOXIDE 27.7 mmol/L (21.0-32.0); CREATININE - SERUM 0.9 mg/dL (0.6-1.3); POTASSIUM - SERUM 4.1 mmol/L (3.5-5.1)
[2018-03-23 08:01] VITALS: BP 178/100; Ht 162.6 cm; Wt 104.5 kg
== END 2018-03-23 09:15 | disposition home or self-care (01) ==
LOC: D.OPS 07:15
PROVIDERS: Anesthesiology
DX: K29.60 Other gastritis without bleeding (principal); K44.9 Diaphragmatic hernia without obstruction or gangrene; K22.10 Ulcer of esophagus without bleeding; K21.9 Gastro-esophageal reflux disease without esophagitis; E11.9 Type 2 diabetes mellitus without complications; I10 Essential (primary) hypertension; E66.01 Morbid (severe) obesity due to excess calories; Z68.39 Body mass index [BMI] 39.0-39.9, adult; Z01.812 Encounter for preprocedural laboratory examination

== ENCOUNTER 2018-05-04 06:25 | Inpatient (IN) | payer MEDICARE ==
[2018-05-03 11:09] LABS: HEMOGLOBIN 13.5 g/dL (12-16); MCH 28.1 pg (26.0-34.0); MCHC 33.8 g/dL (31.0-37.0); MCV 83.2 fL (80.0-100.0); MEAN PLATELET VOLUME 10.6 fL (7.4-10.4); RBC 4.81 10x6/uL (4.00-5.40); RDW 13.2 % (11.5-14.5); WBC 8.4 10x3/uL (4.8-10.8)
[2018-05-03 11:31] LABS: ANION GAP 16.4 mmol/L (8-16); CALCIUM 8.9 mg/dL (8.5-10.1); CARBON DIOXIDE 25.3 mmol/L (21.0-32.0); POTASSIUM - SERUM 4.7 mmol/L (3.5-5.1)
[~2018-05-04] VITALS: Ht 162.6 cm; Wt 103.9 kg
[2018-05-04] VITALS (13 sets, daily range): BP systolic 124–181; BP diastolic 69–106; BMI 39.4
[2018-05-05 04:12] VITALS: BP 183/99
[2018-05-05 05:52] LABS: BASOPHILS 0.2 % (0-2); EOSINOPHILS 1.4 % (0-7); HEMATOCRIT 34.5 % (36.0-48.0); HEMOGLOBIN 11.1 g/dL (12-16); IMMATURE GRANULOCYTES 0.2 % (0-5); MCH 27.6 pg (26.0-34.0); MCHC 32.2 g/dL (31.0-37.0); MEAN PLATELET VOLUME 10.2 fL (7.4-10.4); MONOCYTES 7.2 % (2-11); PLATELET COUNT 233 10x3/uL (130-400); RBC 4.02 10x6/uL (4.00-5.40); RDW 13.7 % (11.5-14.5); WBC 10.1 10x3/uL (4.8-10.8)
[2018-05-05 06:10] LABS: MCV 85.8 fL (80.0-100.0)
[2018-05-05 06:39] LABS: ALBUMIN 2.7 g/dL (3.4-5.0); ANION GAP 15.4 mmol/L (8-16); BILIRUBIN - TOTAL 0.35 mg/dL (0.2-1.3); CALCIUM 7.8 mg/dL (8.5-10.1); CARBON DIOXIDE 24.6 mmol/L (21.0-32.0); CREATININE - SERUM 0.9 mg/dL (0.6-1.3); PROTEIN - SERUM 5.6 g/dL (6.4-8.2)
[2018-05-05 09:23] VITALS: BP 183/92
[2018-05-05 11:09] VITALS: Ht 162.6 cm; Wt 103.9 kg
[2018-05-05 12:25] VITALS: BP 179/100
[2018-05-05 17:02] VITALS: BP 179/90
[2018-05-05 21:08] VITALS: BP 165/91
[2018-05-06 04:45] VITALS: BP 166/90
[2018-05-06 07:16] LABS: ANION GAP 15.1 mmol/L (8-16); CARBON DIOXIDE 23.4 mmol/L (21.0-32.0); CREATININE - SERUM 0.9 mg/dL (0.6-1.3); POTASSIUM - SERUM 3.5 mmol/L (3.5-5.1)
[2018-05-06 07:35] LABS: HEMATOCRIT 34.1 % (36.0-48.0); HEMOGLOBIN 11.5 g/dL (12-16); LYMPHOCYTES 12.1 % (15-50); MCHC 33.7 g/dL (31.0-37.0); NEUTROPHILS 78.6 % (40-80); PLATELET COUNT 217 10x3/uL (130-400); RBC 4.11 10x6/uL (4.00-5.40); WBC 9.5 10x3/uL (4.8-10.8)
[2018-05-06] MEDS ORDERED: ZOFRAN ODT4 MG/UDTAB PO (09:11)
[2018-05-06] MEDS ORDERED: HYDROCODON-ACE1 EAC7 PO (09:11)
== END 2018-05-06 13:15 | disposition home or self-care (01) | DRG 621 ==
LOC: D.MS 06:25 → D.SDCHOLD 06:25 → D.MS 12:12
PROVIDERS: Anesthesiology; Surgery
PROC: 0DB64Z3 Excision of Stomach, Percutaneous Endoscopic Approach, Vertical (ICD-10-PCS; principal; 2018-05-04 08:30)
DX: E66.01 Morbid (severe) obesity due to excess calories (principal); Z68.41 Body mass index [BMI] 40.0-44.9, adult; K21.9 Gastro-esophageal reflux disease without esophagitis; E11.9 Type 2 diabetes mellitus without complications; I10 Essential (primary) hypertension; M19.90 Unspecified osteoarthritis, unspecified site; R33.9 Retention of urine, unspecified

== ENCOUNTER 2018-05-15 19:04 | Inpatient (IN) | payer MEDICARE ==
[~2018-05-15] VITALS: Ht 162.6 cm; Wt 95.9 kg
[~2018-05-15 19:04] MED LIST changes: +HYDROCODON-ACE1 EAC7 PO; +ZOFRAN ODT4 MG/UDTAB PO
[2018-05-15 19:37] LABS: BASOPHILS 0.3 % (0-2); EOSINOPHILS 2.4 % (0-7); HEMATOCRIT 35.8 % (36.0-48.0); HEMOGLOBIN 11.9 g/dL (12-16); IMMATURE GRANULOCYTES 0.6 % (0-5); LYMPHOCYTES 17.3 % (15-50); MCH 27.9 pg (26.0-34.0); MCHC 33.2 g/dL (31.0-37.0); MEAN PLATELET VOLUME 9.5 fL (7.4-10.4); MONOCYTES 9.3 % (2-11); NEUTROPHILS 70.1 % (40-80); RBC 4.26 10x6/uL (4.00-5.40); WBC 8.8 10x3/uL (4.8-10.8)
[2018-05-15 19:38] LABS: PLATELET COUNT 297 10x3/uL (130-400)
[2018-05-15 19:54] LABS: ALBUMIN 2.8 g/dL (3.4-5.0); ANION GAP 23.6 mmol/L (8-16); BILIRUBIN - TOTAL 0.5 mg/dL (0.2-1.3); CALCIUM 9.1 mg/dL (8.5-10.1); CARBON DIOXIDE 17.6 mmol/L (21.0-32.0); CREATININE - SERUM 2.4 mg/dL (0.6-1.3); POTASSIUM - SERUM 3.2 mmol/L (3.5-5.1); PROTEIN - SERUM 6.7 g/dL (6.4-8.2)
[2018-05-15 20:49] VITALS: BP 168/71
[2018-05-15 22:09] LABS: APPEARANCE CLOUDY (CLEAR); BILIRUBIN NEGATIVE (NEGATIVE); COLOR YELLOW (YELLOW); GLUCOSE NEGATIVE (NEGATIVE); KETONE MODERATE mg/dL (NEGATIVE); NITRITE NEGATIVE (NEGATIVE); PROTEIN 1+ mg/dL (NEGATIVE); SPECIFIC GRAVITY 1.015 (1.005-1.020); UROBILINOGEN NORMAL (NORMAL)
[2018-05-15 22:15] LABS: BACTERIA MODERATE /hpf (NONE SEEN); EPITHELIAL CELLS 0-5 /hpf (0-5); WHITE CELLS - URINE 25-50 /hpf (0-5)
[2018-05-15 22:21] VITALS: BP 168/71
[2018-05-16] VITALS (8 sets, daily range): BP systolic 121–210; BP diastolic 78–109; Ht 162.6 cm; Wt 95.9 kg
[2018-05-16 05:40] LABS: BASOPHILS 0.1 % (0-2); EOSINOPHILS 2.8 % (0-7); HEMATOCRIT 35.7 % (36.0-48.0); HEMOGLOBIN 11.9 g/dL (12-16); IMMATURE GRANULOCYTES 1.1 % (0-5); LYMPHOCYTES 17.8 % (15-50); MCH 27.9 pg (26.0-34.0); MCHC 33.3 g/dL (31.0-37.0); MCV 83.8 fL (80.0-100.0); MEAN PLATELET VOLUME 10.2 fL (7.4-10.4); MONOCYTES 10.9 % (2-11); NEUTROPHILS 67.3 % (40-80); RBC 4.26 10x6/uL (4.00-5.40); RDW 14.2 % (11.5-14.5); WBC 8.3 10x3/uL (4.8-10.8)
[2018-05-16 05:53] LABS: PLATELET COUNT 207 10x3/uL (130-400)
[2018-05-16 06:17] LABS: CALCIUM 8.6 mg/dL (8.5-10.1); CARBON DIOXIDE 16.1 mmol/L (21.0-32.0); CREATININE - SERUM 2.7 mg/dL (0.6-1.3)
[2018-05-16 06:18] LABS: POTASSIUM - SERUM 4.1 mmol/L (3.5-5.1)
[2018-05-17 04:37] VITALS: BP 148/85
[2018-05-17 07:31] LABS: BASOPHILS 0.2 % (0-2); EOSINOPHILS 1.5 % (0-7); HEMATOCRIT 36.6 % (36.0-48.0); HEMOGLOBIN 11.6 g/dL (12-16); IMMATURE GRANULOCYTES 0.5 % (0-5); LYMPHOCYTES 11.7 % (15-50); MCH 27.4 pg (26.0-34.0); MCHC 31.7 g/dL (31.0-37.0); MEAN PLATELET VOLUME 9.5 fL (7.4-10.4); MONOCYTES 10.9 % (2-11); NEUTROPHILS 75.2 % (40-80); RBC 4.23 10x6/uL (4.00-5.40); RDW 14.5 % (11.5-14.5); WBC 8.8 10x3/uL (4.8-10.8)
[2018-05-17 07:35] LABS: MCV 86.5 fL (80.0-100.0); PLATELET COUNT 298 10x3/uL (130-400)
[2018-05-17 07:49] LABS: ALBUMIN 2.5 g/dL (3.4-5.0); BILIRUBIN - TOTAL 0.22 mg/dL (0.2-1.3); PROTEIN - SERUM 6.5 g/dL (6.4-8.2)
[2018-05-17 07:51] LABS: CREATININE - SERUM 3.5 mg/dL (0.6-1.3)
[2018-05-17 08:26] VITALS: BP 174/91
[2018-05-17 12:42] VITALS: BP 176/93
[2018-05-17 15:40] LABS: APPEARANCE CLEAR (CLEAR); BILIRUBIN NEGATIVE (NEGATIVE); COLOR YELLOW (YELLOW); GLUCOSE NEGATIVE (NEGATIVE); KETONE SMALL mg/dL (NEGATIVE); NITRITE NEGATIVE (NEGATIVE); PROTEIN NEGATIVE (NEGATIVE); UROBILINOGEN NORMAL (NORMAL)
[2018-05-17 17:00] LABS: CREATININE - URINE 17.6 mg/dL (30-125); POTASSIUM - URINE 8.6 MMOL/L (12.0-62.0); PRO/CRE RATIO URINE 0.5 mg/g
[2018-05-17 22:27] VITALS: BP 151/79
[2018-05-18 05:08] VITALS: BP 158/74
[2018-05-18 06:33] LABS: BASOPHILS 0.4 % (0-2); EOSINOPHILS 3.6 % (0-7); HEMATOCRIT 35.8 % (36.0-48.0); HEMOGLOBIN 11.4 g/dL (12-16); IMMATURE GRANULOCYTES 0.5 % (0-5); LYMPHOCYTES 14.3 % (15-50); MCH 27.3 pg (26.0-34.0); MCHC 31.8 g/dL (31.0-37.0); MCV 85.6 fL (80.0-100.0); MEAN PLATELET VOLUME 9.7 fL (7.4-10.4); MONOCYTES 8.2 % (2-11); PLATELET COUNT 291 10x3/uL (130-400); RBC 4.18 10x6/uL (4.00-5.40); RDW 14.6 % (11.5-14.5); WBC 8.4 10x3/uL (4.8-10.8)
[2018-05-18 06:58] LABS: ALBUMIN 2.7 g/dL (3.4-5.0); ANION GAP 22.1 mmol/L (8-16); BILIRUBIN - TOTAL 0.24 mg/dL (0.2-1.3); CALCIUM 8.9 mg/dL (8.5-10.1); CARBON DIOXIDE 17.6 mmol/L (21.0-32.0); CREATININE - SERUM 2.7 mg/dL (0.6-1.3); POTASSIUM - SERUM 3.7 mmol/L (3.5-5.1); PROTEIN - SERUM 6.2 g/dL (6.4-8.2)
[2018-05-18 08:43] VITALS: BP 177/85
[2018-05-18 12:40] VITALS: BP 151/97
[2018-05-18 16:46] VITALS: BP 176/90
[2018-05-18 20:00] VITALS: BP 171/91
[2018-05-19 04:30] VITALS: BP 176/91
[2018-05-19 06:10] LABS: HEMATOCRIT 35.2 % (36.0-48.0); HEMOGLOBIN 11.7 g/dL (12-16); MCH 27.4 pg (26.0-34.0); MCHC 33.2 g/dL (31.0-37.0); MEAN PLATELET VOLUME 10.6 fL (7.4-10.4); NEUTROPHILS 70.2 % (40-80); RBC 4.27 10x6/uL (4.00-5.40); RDW 14.2 % (11.5-14.5)
[2018-05-19 06:14] LABS: MCV 82.4 fL (80.0-100.0); PLATELET COUNT 182 10x3/uL (130-400)
[2018-05-19 06:58] LABS: ALBUMIN 2.7 g/dL (3.4-5.0); ANION GAP 22.5 mmol/L (8-16); BILIRUBIN - TOTAL 0.34 mg/dL (0.2-1.3); CALCIUM 8.8 mg/dL (8.5-10.1); CARBON DIOXIDE 18.7 mmol/L (21.0-32.0); CREATININE - SERUM 1.9 mg/dL (0.6-1.3); POTASSIUM - SERUM 4.2 mmol/L (3.5-5.1); PROTEIN - SERUM 6.2 g/dL (6.4-8.2)
[2018-05-19 09:10] VITALS: BP 202/110
[2018-05-19 11:58] VITALS: BP 191/97
[2018-05-19 17:36] VITALS: BP 155/79
[2018-05-19 18:31] VITALS: BP 115/74
[2018-05-19 20:00] VITALS: BP 121/76
[2018-05-20 06:26] VITALS: BP 156/75
[2018-05-20 07:22] LABS: BASOPHILS 0.2 % (0-2); EOSINOPHILS 2.7 % (0-7); HEMATOCRIT 36.2 % (36.0-48.0); HEMOGLOBIN 12.1 g/dL (12-16); IMMATURE GRANULOCYTES 0.2 % (0-5); LYMPHOCYTES 16.5 % (15-50); MCH 27.7 pg (26.0-34.0); MCHC 33.4 g/dL (31.0-37.0); MCV 82.8 fL (80.0-100.0); MEAN PLATELET VOLUME 9.6 fL (7.4-10.4); MONOCYTES 8.1 % (2-11); NEUTROPHILS 72.3 % (40-80); RBC 4.37 10x6/uL (4.00-5.40); RDW 14.2 % (11.5-14.5); WBC 8.1 10x3/uL (4.8-10.8)
[2018-05-20 07:26] LABS: PLATELET COUNT 327 10x3/uL (130-400)
[2018-05-20 08:06] LABS: ALBUMIN 2.8 g/dL (3.4-5.0); ANION GAP 18.8 mmol/L (8-16); BILIRUBIN - TOTAL 0.34 mg/dL (0.2-1.3); CALCIUM 8.9 mg/dL (8.5-10.1); CARBON DIOXIDE 22.9 mmol/L (21.0-32.0); CREATININE - SERUM 1.8 mg/dL (0.6-1.3); PROTEIN - SERUM 6.9 g/dL (6.4-8.2)
[2018-05-20 08:07] LABS: POTASSIUM - SERUM 2.7 mmol/L (3.5-5.1)
[2018-05-20 08:48] VITALS: BP 155/88
[2018-05-20 12:30] VITALS: BP 157/81
[2018-05-20] MEDS ORDERED: NORVASC10 MG PO (15:39)
[2018-05-20] MEDS ORDERED: LEVAQUIN250 MG PO (15:41)
[2018-05-20] MEDS ORDERED: K-TAB10 MEQ PO (19:28)
== END 2018-05-20 19:30 | disposition home or self-care (01) | DRG 683 ==
LOC: D.ER 19:04 → D.MS 22:41 → D.M2 22:41 → D.EDHOLD 22:41 → D.MS 23:00 → D.M2 23:22 → D.MS 05-16 21:20
PROVIDERS: Family Medicine; Internal Medicine
DX: N17.9 Acute kidney failure, unspecified (principal); N39.0 Urinary tract infection, site not specified; G89.18 Other acute postprocedural pain; R10.31 Right lower quadrant pain; Z98.84 Bariatric surgery status; E11.65 Type 2 diabetes mellitus with hyperglycemia; I10 Essential (primary) hypertension; F41.9 Anxiety disorder, unspecified; F32.9 Major depressive disorder, single episode, unspecified; E87.6 Hypokalemia; E86.0 Dehydration; K21.9 Gastro-esophageal reflux disease without esophagitis; E66.01 Morbid (severe) obesity due to excess calories; Z68.36 Body mass index [BMI] 36.0-36.9, adult; R21 Rash and other nonspecific skin eruption

== ENCOUNTER 2019-04-24 08:00 | Outpatient (CLI) | payer MEDICARE ==
[2018-05-16 16:05] VITALS: BMI 36.3
[~2019-04-24 08:00] MED LIST changes: +K-TAB10 MEQ PO; +LEVAQUIN250 MG PO; +NORVASC10 MG PO
== END 2019-04-24 23:59 | disposition home or self-care (01) ==
LOC: D.MAMMO 08:00
PROVIDERS: ATTEND Family Medicine
DX: Z12.31 Encounter for screening mammogram for malignant neoplasm of breast (principal)

== ENCOUNTER 2019-12-25 09:43 | Observation (INO) | payer MEDICARE ==
[~2019-12-25] VITALS: Ht 162.6 cm; Wt 74.3 kg
--- NOTE | ~2019-12-25 | HEMODYNAMI ---
PATIENT:BIA SMILEY MEDICAL RECORD: [id number] : 57 [id number] ADMISSION DATE: 12/25/19 Generatedon:12/26/201914:27 Patient name: BIA SMILEY Patient #: [id number] SSN: [id number] : 1955 Date of study: 12/26/2019 Page: Of Hemodynamic Procedure Report Patient Data Patient Demographics Procedure consent was obtained First Name: BIA Gender: Female Last Name: SHERICE : 1955 Middle Initial: M Age: 64 year(s) Patient #: [id number] Race: SSN: [id number] Additional ID: [id number] Contact details Address: [address] [place] [address] State: [place] City: [place] Zip code: [address] Past Medical History Allergies Allergen Reaction Date Comments Reported Sulfa drugs 12/26/2019 Other allergy 12/26/2019 ampicillian Admission Admission Data Admission Date: 12/25/2019 Admission Time: 11:32 Room #: D.2117 Insurance Payor: Medicare Height (in.): 64 BSA: 1.82 (m2) Height (cm.): 162.56 BMI: 29.14 (kg/m2) Weight (lbs.): 169.76 Weight (kg.): 77 Current Diagnosis Diagnosis Description Unstable angina Lab Results Lab Result Date: 12/26/2019 Lab Result Time: 0:00 Biochemistry Name Units Result Min Max Creatinine mg/dl 0.7 --(*---)-- 0.6 1.3 eGFR ml/min 90 --(*---)-- 90 120 NONAFRICAN CBC Name Units Result Min Max Hematocrit % 39.8 -*(----)-- 42 54 Hemoglobin g/dl 12.6 -*(----)-- 13.5 17.5 Procedure Procedure Types Cath Procedure Diagnostic Procedure LHC [facility] w/Coronaries FFR/IVUS FFR Initial Sedation Charges Moderate Sedation up to 30 minutes PCI Procedure Coronary Stent Coronary Stent Initial Hemochron ACT Test Procedure Description Procedure Date Procedure Date: 12/26/2019 Procedure Start Time: 13:44 Procedure End Time: 14:11 Procedure Staff Name Function Moo Huston MD Performing Physician Lashon Nguyen RT Monitor Baylee Almazan RT Scrub Joslyn Owusu RN Nurse Procedure Data Cath Procedure Fluoroscopy Diagnostic fluoroscopy Total fluoroscopy Time: 6.5 time: 6.5 min min Diagnostic fluoroscopy Total fluoroscopy dose: 139 dose: 139 mGy mGy Contrast Material Contrast Material Type Amount (ml) Isovue 300 136 Entry Location Entry Primary Successful Side Size Upsize Upsize Entry Closure Succes sful Closure Location (Fr) 1 (Fr) 2 (Fr) Remarks Device Remarks Femoral Right 5 Fr Exoseal artery Estimated blood loss: 10 ml Diagnostic catheters Device Type Used For End Catheter Placement MULTIPACK JL 4.0 5Fr Procedure catheter MULTIPACK 3DRC 5Fr Procedure catheter MULTIPACK Pigtail 5 Fr Procedure catheter Procedure Complications No complications Procedure Medications Medication Administration Route Dosage 0.9% NaCl I.V. 100 ml/hr Oxygen etCO2 Nasal cannula 2 l/min Lidocaine 2% added to field 20 Heparin Flush Bag added to field 2 bags (1000units/500ml NS) Versed I.V. 2 mg Fentanyl I.V. 50 mcg Fentanyl I.V. 50 mcg Heparin Bolus I.V. 2000 units Lopressor I.V. 5 mg Heparin Bolus I.V. 3000 units Integrilin (Bolus I.V. 6.8 ml 2mg/ml) Integrilin (Bolus wasted 3.2 ml 2mg/ml) Plavix P.O. 600 mg Phenergan I.M. 25 mg Hemodynamics Rest BSA: 1.82 (m2) O2 Consumption: Estimated: 179.01 (ml/min) O2 Consumption indexed : Estimated:98.36 (ml/min/m) Heart Rate: 82 (bpm) Pressure Samples Time Site Value (mmHg) Purpose Heart Use Rate(bpm) 13:51 LV 185/9,10 Snapshot 90 Gradients Valve Time Site Site Mean SEP/DFP Peak To Heart Use 1 2 (mmHg) (sec/min) Peak Rate (mmHg) (bpm) Aortic 13:52 LV AO 91 Snapshots Pre Cath Intra NCS Post Cath Vital Signs Time Heart Resp SPO2 etCO2 NIBP (mmHg) Rhythm Pain Sedation Rate (ipm) (%) (mmHg) Status Level (bpm) 13:29:35 83 13 100 30.7 165/101(138) NSR 0 (11) 10(A) , No pain 13:33:49 89 16 97 11.9 153/95(127) NSR 0 (11) 10(A) , No pain 13:38:03 79 15 97 32.9 161/95(133) NSR 0 (11) 10(A) , No pain 13:42:21 79 14 98 35.1 173/98(141) NSR 0 (11) 10(A) , No pain 13:46:35 80 12 98 32.1 143/94(124) NSR 0 (11) 10(A) , No pain 13:50:47 89 10 97 35.1 163/106(143) NSR 0 (11) 9(A) , No pain 13:55:07 78 13 98 38.1 174/89(138) NSR 0 (11) 9(A) , No pain 13:59:25 75 15 98 37.4 159/90(140) NSR 0 (11) 9(A) , No pain 14:03:41 83 14 99 35.9 172/97(131) NSR 0 (11) 9(A) , No pain 14:08:03 87 15 99 32.1 155/98(131) NSR 0 (11) 10(A) , No pain Medications Time Medication Route Dose Verified Delivered Reason Notes Effectiveness by by 13:28:37 0.9% NaCl I.V. 100 Moo Jorgensen used for ml/hr Gervais Umer procedure RN 13:28:44 Oxygen etCO2 2 Moo Jorgensen used for Nasal l/min [facility] procedure cannula MD BENSON 13:28:49 Lidocaine 2% added 20ml Moo Cortés for local to vial [facility] anesthetic field MD BALLARD 13:28:52 Heparin Flush added 2 Moo Cortés used for Bag to bags [facility] procedure (1000units/500ml field MD BALLARD NS) 13:40:40 Versed I.V. 2 mg Moo Medleya for sedation [facility] Iron Owusu MD RN 13:40:51 Fentanyl I.V. 50 Moo Riggsyla for sedation mcg [facility] Iron Owusu MD RN 13:44:59 Fentanyl I.V. 50 Moo Medleya for sedation mcg [facility] Iron Owusu MD, RN 13:54:02 Heparin Bolus I.V. 2000 Moo Jorgensen for units [facility] Iron Owusu anticoagulation MD BENSON 13:54:20 Lopressor I.V. 5 mg Moo Jorgensen Per physician [facility] Iron Owusu MD, RN 14:05:09 Heparin Bolus I.V. 3000 Moo Jorgensen for units [facility] Iron Owusu anticoagulation MD BENSON 14:05:18 Integrilin I.V. 6.8 Moo Riggsyla for (Bolus 2mg/ml) ml St Iron Owusu antiplatelet RN therapy 14:05:30 Integrilin wasted 3.2 Moo Medleya for (Bolus 2mg/ml) ml [facility] Iron Owusu antiplatelet RN therapy 14:05:36 Plavix P.O. 600 Moo Jorgensen for mg [facility] Iron Owusu antiplatelet RN therapy 14:24:11 Phenergan I.M. 25 mg Moo Jorgensen for nausea St Iron Owusu MD, RN Procedure Log Time Note 12:50:05 Baylee CARLIN(R) sent for patient. Start room use. 12:50:52 Informed consent obtained and on chart 12:53:42 ACC Patient presents with Unstable Angina CCS Anginal Class 2--Slight limitation of ordinary activity. 12:53:51 Procedure Status Urgent Heart Cath (IP). 12:54:41 Time tracking: Regular hours (M-F 7:00 - 5:00) 12:54:46 Plan of Care:Hemodynamics will remain stable., Cardiac rhythm will remain stable., Comfort level will be maintained., Respiratory function will remain adequate., Patient/ family verbilizes understanding of procedure., Procedure tolerated without complication., Recovers from procedure without complications.. 12:54:55 H&P Date Dictated: 12/26/2019 Within 30 days and on chart.. 12:55:04 Is patient on blood thinner?No 12:55:07 ACC The patient was administered the following blood thiners within the last 24 hours: None 12:55:10 Patient diabetic? Yes. 12:55:12 If diabetic: On Metformin? Yes 12:55:15 If on Metformin: Last Dose? 12/26/2019 12:55:30 Patient not . Patient is over age 55. 12:58:41 Patient allergic to Sulfa drugs 12:58:59 Patient allergic to Other allergyampicillian 12:59:09 Insurance Payor : Medicare 12:59:21 Patient Height : 64 inches 12:59:29 Patient Weight : 169.76 lbs 12:59:34 Current Diagnosis : Unstable angina 13:00:25 Lab Result : Creatinine 0.7 mg/dl 13:00:25 Lab Result : eGFR NONAFRICAN 90 ml/min 13:00:25 Lab Result : Hematocrit 39.8 % 13:00:25 Lab Result : Hemoglobin 12.6 g/dl 13:04:23 Risk of Mortality: 0.1 13:04: Risk of blood transfusion: 10 13:04:28 Risk of REINIER: 2.4 13:28:28 Vital chart was started 13:28:37 0.9% NaCl 100 ml/hr I.V. was administered by Joslyn Owusu RN; used for procedure; Verbal order read back and verified. 13:28:44 Oxygen 2 l/min etCO2 Nasal cannula was administered by Joslyn Owusu RN; used for procedure; Verbal order read back and verified. 13:28:49 Lidocaine 2% 20ml vial added to field was administered by Moo Huston MD; for local anesthetic; Verbal order read back and verified. 13:28:52 Heparin Flush Bag (1000units/500ml NS) 2 bags added to field was administered by Moo Huston MD; used for procedure; Verbal order read back and verified. 13:31:32 Patient received from Med II to CCL 2 Alert and oriented. Tansferred to table in Supine position. 13:31:33 Warm blankets applied, and satnam hugger turned on for patient comfort. 13:31:33 Correct patient and procedure confirmed by team. 13:31:34 ECG and BP/O2 sat monitors applied to patient. 13:31:35 Baseline sample Acquired. 13:31:38 Rhythm: sinus rhythm 13:31:39 Full Disclosure recording started 13:31:39 Pre-procedure instructions explained to patient. 13:31:40 Pre-op teaching completed and patient verbalized understanding. 13:31:41 Family AVAILABLE WITH PHONE CALL 13:32:04 Patient NPO since Midnight. 13:32:05 Is the patient allergic to Iodine/contrast media? No. 13:32:12 Previous problem with sedation/anesthesia? No ? 13:32:13 Snore? Yes 13:32:14 Sleep apnea? No 13:32:15 Deviated septum? No 13:32:16 Opens mouth fully? Yes 13:32:17 Sticks out tongue? Yes 13:32:19 Airway obstruction? No ? 13:32:20 Dentures? No ? 13:32:23 Pre procedure: right dorsailis pedis pulse 1+ Palpable, but thready & weak; easily obliterated 13:32:27 Patient pain scale 0/10 ?. 13:32:33 IV patent on arrival in left antecubital with 0.9% NaCl at [facility]. 13:32:36 Lab results completed and on chart. 13:32:39 Stress Test: no; N/A ? 13:32:50 Right groin area was prepped with chlora-prep and draped in sterile fashion 13:32:51 Alarms reviewed by R. N. 13:32:51 Sharps counted by scrub and verified by R.N. 13:32:54 Use device set Femoral Dx 13:32:55 ACIST Syringe (13863) opened to sterile field. 13:32:56 Bag Decanter (2002S) opened to sterile field. 13:32:57 Medline Cath Pack ([id number]) opened to sterile field. 13:32:58 ACIST Hand Control (16232) opened to sterile field. 13:32:59 ACIST Manifold (99019) opened to sterile field. 13:33:00 DIAGNOSTIC Multipack 5Fr catheter set ([id number]) opened to sterile field. 13:33:00 Tegaderm 4 x 4 (1626W) opened to sterile field. 13:33:02 SHEATH 5FR [place] (ERG356) opened to sterile field. 13:33:02 EMERALD Guide Wire (188-255) opened to sterile field. 13:39:13 --------ALL STOP TIME OUT------ 13:39:14 Final Timeout: patient, procedure, and site verified with staff and physician. All members of the team are in agreement. 13:39:15 Right groin site verified by team. 13:39:18 Fire Safety Assessment: A--An alcohol-based skin anteseptic being used preoperatively., C--Open oxygen or nitrous oxide is being used., D--An ESU, laser, or fiber-optic light is being used. 13:39:20 Physical assessment completed. ASA score P 2 - A patient with mild systemic disease as per Moo Huston MD. 13:39:22 1) 90+ Normal kidney functon but urine findings or structural abnormalities or genetic trait point to kidney disease. 13:39:25 Maximum allowable contrast dose (3.7 X eGFR X 0.75)250 ml. 13:39:28 Sedation plan: IV Moderate Sedation Medication:Versed, Fentanyl 13:40:40 Versed 2 mg I.V. was administered by Joslyn Owusu RN; for sedation; Verbal order read back and verified. 13:40:51 Fentanyl 50 mcg I.V. was administered by Joslyn Owusu RN; for sedation; Verbal order read back and verified. 13:44:09 Procedure started. 13:44:44 Local anesthetic to right femoral artery with Lidocaine 2% by Moo Huston MD.INITIAL ACCESS ONLY 13:44:59 Fentanyl 50 mcg I.V. was administered by Joslyn Owusu RN; for sedation; Verbal order read back and verified. 13:45:05 Zero performed for pressure channel P1 13:45:38 Zero performed for pressure channel P1 13:47:50 A 5 Fr sheath was inserted into the Right Femoral artery 13:48:04 A MULTIPACK JL 4.0 5Fr catheter was advanced over the wire and used for Procedure. 13:49:54 LCA angiography performed. 13:49:56 Catheter removed. 13:50:01 A MULTIPACK 3DRC 5Fr catheter was advanced over the wire and used for Procedure. 13:51:06 RCA angiography performed. 13:51:08 ACCDominant side:Left 13:51:09 Catheter removed. 13:51:17 A MULTIPACK Pigtail 5 Fr catheter was advanced over the wire and used for Procedure. 13:51:23 LV gram done using LARA 13:51:42 Injector settings: Ml/sec: 10, Volume: 20, 13:52:00 LV hemodynamics recorded. 13:52:12 EF : 50 % 13:52:13 Catheter removed. 13:52:24 GUIDE 5FR EBU 3.5 catheter ([id number]) opened to sterile field. 13:52:32 ZigaViterata Plus pressure wire (81300G) opened to sterile field. 13:53:10 5 Fr EBU 3.5 guide catheter was inserted over the wire 13:54:02 Heparin Bolus 2000 units I.V. was administered by Joslyn Owusu RN; for anticoagulation; Verbal order read back and verified. 13:54:20 Lopressor 5 mg I.V. was administered by Joslyn Owusu RN; Per physician; Verbal order read back and verified. 13:57:00 FFR/IFR wire advanced. 14:02:50 Wire advanced across lesion. 14:03:11 mLAD lesion measured at .70 with IFR 14:04:17 Pre PCI Site: [place] LAD has 80% stenosis. 14:05:09 Heparin Bolus 3000 units I.V. was administered by Joslyn Owusu RN; for anticoagulation; Verbal order read back and verified. 14:05:18 Integrilin (Bolus 2mg/ml) 6.8 ml I.V. was administered by Joslyn Owusu RN; for antiplatelet therapy; Verbal order read back and verified. 14:05:19 INFLATOR Merit BasixCompak (DC1778) opened to sterile field. 14:05:30 Integrilin (Bolus 2mg/ml) 3.2 ml wasted was administered by Joslyn Owusu RN; for antiplatelet therapy; Verbal order read back and verified. 14:05:36 Plavix 600 mg P.O. was administered by Joslyn Owusu RN; for antiplatelet therapy; Verbal order read back and verified. 14:06:15 Place stent Inflation Number: 1 A SIDNEY RX 3.5 x 15 stent ([id number]) was prepped and advanced across the Mid LAD . The stent was deployed at 14 PENNY for 0:00 (min:sec) . 14:06:37 Stent catheter was removed intact over wire. 14:06:37 Balloon removed over the wire. 14:06:38 Wire removed. 14:07:28 EXOSEAL 5Fr (EX500) opened to sterile field. 14:07:42 Sheath removed intact; hemostasis achieved with Exoseal to the Right Femoral artery. 14:07:46 Procedure ended.(Physican Out) 14:08:51 Fluoroscopy time 06.50 minutes. 14:08:54 Fluoroscopy dose: 139 mGy 14:08:54 Flurop Dose total: 139 14:09:21 Dose Area Product 08294 mGy/cm. 14:09:24 Contrast amount:Isovue 300 136ml. 14:09:30 Maximum allowable dose exceeded? No. 14:09:31 Sharps counted by scrub and verified by R.N. 14:09:34 Post-op/insertion site Right Femoral artery dressed using a 4 x 4 and Tegaderm. 14:09:37 Post-procedure physical assessment completed. ASA score P 2 - A patient with mild systemic disease as per Moo Huston MD. 14::40 Post procedure rhythm: sinus rhythm 14::42 Estimated blood loss: 10 ml 14::43 Post procedure instruction explained to patient.Patient verbalizes understanding. 14::43 Patient needs reinforcement of post procedure teaching. 14:10:17 Procedure type changed to Cath procedure, Diagnostic procedure, LHC, C w/Coronaries, FFR/IVUS, FFR Initial, Sedation Charges, Moderate Sedation up to 30 minutes, PCI procedure, Coronary Stent, Coronary Stent Initial, Hemochron ACT Test 14::43 Procedure and supply charges have been captured, reviewed, submitted and are correct. 14:10:45 Procedure Complication : No complications 14:10:48 [facility] Findings: MVD- PCI performed (see procedure note) 14:10:49 Operative report dictated upon procedure completion. 14:10:50 See physician's report for complete and final results. 14:11:00 Vital chart was stopped 14:11:02 Report given to PCU. 14:11:10 Patient transfered to PCU with Bed. 14:11:12 Procedure ended. 14:11:12 Full Disclosure recording stopped 14:11:21 ACC-PCI Only Patient was given prescriptions, or instructed by Moo Huston MD to start/continue the following medications upon discharge: Plavix 14:11:22 End room use (Document Last) 14:15:28 FEMSTOP Gold ([id number]) opened to sterile field. 14:15:47 Femstop placed over the right femoral artery at 160 mmHg. Hemostasis achieved. 14:16:06 ACT drawn and resulted at 286 seconds. (normal therapeutic range 180-240 seconds). 14:24:11 Phenergan 25 mg I.M. was administered by Joslyn Owusu RN; for nausea; Verbal order read back and verified. Intervention Summary Intervention Notes Time ActionType Lesion and Equipment Used Action# Pressure Duration Attributes 14:06:15 Place stent Mid LAD SIDNEY RX 3.5 x 1 14 00:00 15 stent ([id number]) Device Usage Item Name Manufacture Quantity Catalog Hospital Part Current Minimal Lot# / Number Charge Number Stock Stock Serial# Code ACIST Syringe Acist 1 93993 700039 077516 446654 20 (29932) Medical Systems Inc Bag Decanter Microtek 1 647815 23048 430677 5 () Medical Inc. Medline Cath Medline 1 [id number] 891457 65410 217536 5 Pack ([id number]) ACIST Hand Acist 1 18252 843945 631648 888749 5 Control Medical (90491) Systems Inc ACIST Manifold Acist 1 45058 399584 614918 849851 5 (10453) Medical Systems Inc DIAGNOSTIC Cardinal 1 GE8553 033782 44452 163614 30 Multipack 5Fr Health catheter set ([id number]) Tegaderm 4 x 4 3M 1 1626W 289666 458742 232714 5 (1626W) SHEATH 5FR Terumo 1 [id number] 039081 203844 776817 5 [place] (EAD101) EMERALD Guide Cardinal 1 502-455 843884 055704 977919 5 Wire (502-455) Health MULTIPACK JL Cardinal 1 168039 5 4.0 5Fr Health catheter MULTIPACK 3DRC Cardinal 1 344258 5 5Fr catheter Health MULTIPACK Cardinal 1 603417 5 Pigtail 5 Fr Health catheter GUIDE 5FR EBU Medtronic 1 [id number] 680313 637321 538578 1 3.5 catheter ([id number]) [place] 1 40728Q 418466 144168005 174943 5 Verrata Plus pressure wire (85806Y) INFLATOR Merit Merit 1 WD6541 062220 383822 358295 15 [employer] Medical ([id number]) SIDNEY RX 3.5 x Medtronic 1 [id number] 809155 4825843 907530 5 [id number] 15 stent ([id number]) EXOSEAL 5Fr Cardinal 1 EX500 158463 067637 638327 10 (EX500) Health FEMSTOP Gold [facility] [place] 1 [id number] 335984 138470 520314 5 ([id number]) Signature Audit [place] Stage Time Signature Unsigned Intra-Procedure 12/26/2019 Lashontereza Nguyen 2:20:56 PM RT(R) Intra-Procedure 12/26/2019 Joslyn Owusu 2:27:22 PM RN Intra-Procedure 12/26/2019 Moo Ortiz 2:27:43 PM Iron BALLARD Signatures Performing Physician : Signature : Moo Huston MD Date : Time : Monitor : Lashontereza Nguyen Signature : RT Date : Time : Nurse : Joslyn Owusu RN Signature : Date : Time : [address] [address]
[2019-12-25 10:22] LABS: BASOPHILS 0.3 % (0-2); EOSINOPHILS 0.9 % (0-7); HEMATOCRIT 41.6 % (36.0-48.0); HEMOGLOBIN 13.4 g/dL (12-16); IMMATURE GRANULOCYTES 0.1 % (0-5); LYMPHOCYTES 36.2 % (15-50); MCH 29.8 pg (26.0-34.0); MCHC 32.2 g/dL (31.0-37.0); MCV 92.7 fL (80.0-100.0); MEAN PLATELET VOLUME 9.4 fL (7.4-10.4); MONOCYTES 7.3 % (2-11); NEUTROPHILS 55.2 % (40-80); PLATELET COUNT 327 10x3/uL (130-400); RBC 4.49 10x6/uL (4.00-5.40); RDW 13.8 % (11.5-14.5); WBC 6.8 10x3/uL (4.8-10.8)
[2019-12-25 10:32] LABS: APTT 34.8 SECONDS (22.8-39.4); PROTIME 13.1 SECONDS (11.6-15.0)
[2019-12-25 10:38] LABS: CALC OSMOLALITY 280 mosm/kg (275-300); CALCIUM 8.8 mg/dL (8.5-10.1); CARBON DIOXIDE 21.8 mmol/L (21.0-32.0); CHLORIDE - SERUM 105 mmol/L (98-107); CREATININE - SERUM 0.8 mg/dL (0.6-1.3); GLUCOSE 126 mg/dL (74-106); POTASSIUM - SERUM 4.3 mmol/L (3.5-5.1); SODIUM 139 mmol/L (136-145); UREA NITROGEN 15 mg/dL (7-18); eGFR NON AFRICAN AMERICAN 77 mL/min (90-120)
[2019-12-25 10:49] LABS: ALBUMIN 3.6 g/dL (3.4-5.0); ALKALINE PHOSPHATASE 84 U/L (30-120); ALT (SGPT) 15 U/L (10-68); BILIRUBIN - TOTAL 0.37 mg/dL (0.2-1.3); CKMB 0.5 U/L (0.0-3.6); CREATINE KINASE 38 UL (21-215); MAGNESIUM - SERUM 1.9 mg/dL (1.8-2.4); PROTEIN - SERUM 7.1 g/dL (6.4-8.2)
[2019-12-25 10:50] VITALS: BP 174/93
[2019-12-25 10:50] LABS: TROPONIN-I < 0.017 ng/mL (0.000-0.060)
[2019-12-25 12:25] VITALS: BP 161/87
[2019-12-25] MEDS ORDERED: COZAAR25 MG PO (13:04)
[2019-12-25] MEDS ORDERED: CYCLOBENZAPRINE10 MG PO (13:06)
[2019-12-25] MEDS ORDERED: GLUCOPHAGE500 MG PO (13:06)
[2019-12-25] MEDS ORDERED: COZAAR100 MG PO (13:08)
--- NOTE | 2019-12-25 13:10 | NUR ---
received pt from er via w/c to room 2116 dx CP PT DENIES ANY CP PAIN OR TIGHTNESS AT THIS TIME VSS RESP UNLABORED SKIN W/D COLOR WNL TELEMETRY SR RATE 65 NAD NOTED WILL CONTINUE TO MONITOR
[2019-12-25 13:24] LABS: CKMB 0.4 U/L (0.0-3.6); CREATINE KINASE 32 UL (21-215)
[2019-12-25 13:43] VITALS: BP 156/88; BMI 19.7
[2019-12-25 13:47] LABS: TROPONIN-I < 0.017 ng/mL (0.000-0.060)
[2019-12-25 14:40] LABS: CHOL - HDL RATIO 3.8 ratio (2.3-4.1); LDL-HDL RATIO 2.1 ratio (1.5-3.5)
[2019-12-25 15:55] VITALS: Ht 162.6 cm; Wt 74.3 kg
[2019-12-25 16:32] LABS: BASOPHILS 0.1 % (0-2); HEMATOCRIT 41.4 % (36.0-48.0); HEMOGLOBIN 12.9 g/dL (12-16); IMMATURE GRANULOCYTES 0.3 % (0-5); LYMPHOCYTES 35.1 % (15-50); MCH 29.3 pg (26.0-34.0); MCHC 31.2 g/dL (31.0-37.0); MCV 93.9 fL (80.0-100.0); MEAN PLATELET VOLUME 9.5 fL (7.4-10.4); MONOCYTES 7.7 % (2-11); NEUTROPHILS 55.8 % (40-80); PLATELET COUNT 295 10x3/uL (130-400); RBC 4.41 10x6/uL (4.00-5.40); RDW 13.9 % (11.5-14.5); WBC 6.7 10x3/uL (4.8-10.8)
[2019-12-25 17:19] VITALS: BP 156/88
[2019-12-25 17:24] LABS: ALT (SGPT) 15 U/L (10-68); CALC OSMOLALITY 284 mosm/kg (275-300); CALCIUM 8.7 mg/dL (8.5-10.1); CARBON DIOXIDE 23.7 mmol/L (21.0-32.0); CHLORIDE - SERUM 106 mmol/L (98-107); CREATININE - SERUM 0.8 mg/dL (0.6-1.3); GLUCOSE 157 mg/dL (74-106); POTASSIUM - SERUM 4.1 mmol/L (3.5-5.1); SODIUM 141 mmol/L (136-145); UREA NITROGEN 14 mg/dL (7-18); eGFR NON AFRICAN AMERICAN 77 mL/min (90-120)
[2019-12-25 19:30] LABS: CKMB 0.3 U/L (0.0-3.6); CREATINE KINASE 30 UL (21-215); TROPONIN-I < 0.017 ng/mL (0.000-0.060)
[2019-12-25 20:00] VITALS: BP 185/100
--- NOTE | 2019-12-25 20:07 | NUR ---
RECEIVED BEDSIDE REPORT. PATIENT IS ALERT AND ORIENTED, RESTING COMFORTABLY IN BED. RESPIRATIONS ARE EVEN AND UNLABORED. NO S/S OF DISTRESS. NO C/O PAIN. NEEDS MET. CALL LIGHT WITHIN REACH. WILL CPOC.
[2019-12-26 01:12] VITALS: BP 158/86
[2019-12-26 01:58] LABS: CKMB 0.5 U/L (0.0-3.6); CREATINE KINASE 29 UL (21-215); TROPONIN-I < 0.017 ng/mL (0.000-0.060)
[2019-12-26 04:05] VITALS: BP 160/85
[2019-12-26 05:49] LABS: BASOPHILS 0.1 % (0-2); EOSINOPHILS 0.7 % (0-7); HEMATOCRIT 39.8 % (36.0-48.0); HEMOGLOBIN 12.6 g/dL (12-16); IMMATURE GRANULOCYTES 0.3 % (0-5); LYMPHOCYTES 51.7 % (15-50); MCH 29.1 pg (26.0-34.0); MCHC 31.7 g/dL (31.0-37.0); MEAN PLATELET VOLUME 9.6 fL (7.4-10.4); MONOCYTES 9.3 % (2-11); NEUTROPHILS 37.9 % (40-80); PLATELET COUNT 299 10x3/uL (130-400); RBC 4.33 10x6/uL (4.00-5.40); RDW 13.7 % (11.5-14.5); WBC 6.7 10x3/uL (4.8-10.8)
[2019-12-26 05:56] LABS: MCV 91.9 fL (80.0-100.0)
[2019-12-26 06:34] LABS: ALBUMIN 3.3 g/dL (3.4-5.0); ALKALINE PHOSPHATASE 77 U/L (30-120); ALT (SGPT) 13 U/L (10-68); BILIRUBIN - TOTAL 0.27 mg/dL (0.2-1.3); CALCIUM 8.9 mg/dL (8.5-10.1); CARBON DIOXIDE 23.9 mmol/L (21.0-32.0); CHLORIDE - SERUM 105 mmol/L (98-107); CREATININE - SERUM 0.7 mg/dL (0.6-1.3); POTASSIUM - SERUM 4.1 mmol/L (3.5-5.1); PROTEIN - SERUM 6.1 g/dL (6.4-8.2); SODIUM 138 mmol/L (136-145); UREA NITROGEN 14 mg/dL (7-18); eGFR NON AFRICAN AMERICAN 90 mL/min (90-120)
[2019-12-26 06:36] LABS: CALC OSMOLALITY 276 mosm/kg (275-300); GLUCOSE 99 mg/dL (74-106)
[2019-12-26 08:13] VITALS: BP 168/97
--- NOTE | 2019-12-26 10:56 | NUR ---
AMBULATES WITH PT ASSIST. UP IN CHAIR WITH CALL LIGHT IN REACH. C/O DISCOMFORT TO ANKLE. WILL MONITOR.
[2019-12-26 12:27] VITALS: BP 130/88
--- NOTE | 2019-12-26 13:21 | NUR ---
PRE-OPS GIVEN. TO ASSOCIATION EXECUTIVE BY BED.
--- NOTE | 2019-12-26 14:51 | NUR ---
BACK FROM PULP MIXER. VS WNL. RIGHT GROIN HEMATOMA NOTED WITH FEMSTOP ON. PULP MIXER TECHS AT BS HOLDING PRESSURE. WILL MONITOR.
--- NOTE | 2019-12-26 15:06 | NUR ---
DR. BROWN AT BS. ATROPINE GIVEN FOR NAUSEA. FEMSTOP ON. WILL MONITOR.
[2019-12-26 16:10] VITALS: BP 123/92
--- NOTE | 2019-12-26 16:46 | NUR ---
HEMATOMA GROWING. PUBLICATION DIRECTOR NOTIFIED. WILL LET DR. ROMERO KNOW.
--- NOTE | 2019-12-26 17:36 | NUR ---
LEAVING FOR CT BY BED.
--- NOTE | 2019-12-26 19:18 | NUR ---
PATIENT IS LETHARGIC, RESTING IN BED. RIGHT THIGH SWOLLEN, BRUISED. RELEASED PRESSURE FROM FEMSTOP. NO ACTIVE BLEEDING. RESPIRATIONS ARE EVEN AND UNLABORED. NO S/S OF DISTRESS. NO C/O PAIN. CALL LIGHT WITHIN REACH. WILL CPOC.
--- NOTE | 2019-12-26 20:30 | NUR ---
ASSESSED PATIENT RIGHT UPPER THIGH. RIGHT UPPER THIGH REMAINS ENLARGED AND FIRM, BRUISING VISIBLE. PATIENT RESTING CONFORTABLY IN BED. RESPIRATIONS ARE EVEN AND UNLABORED. NO S/S OF DISTRESS. NO C/O PAIN. BLOOD PRESSURE 90/53. CALL LIGHT WITHIN REACH. NEEDS MET. WILL CPOC.
[2019-12-26 22:16] VITALS: BP 90/54
--- NOTE | 2019-12-26 22:33 | NUR ---
REMOVED FEMSTOP. NO ACTIVE BLEEDING PRESENT. CLEANED AREA AND PLACED GAUZE AND TEGADERM ON INSERTION SITE. PATIENT RESTING COMFORTABLY IN BED. RESPIRATIONS ARE EVEN AND UNLABORED. NO S/S OF DISTRESS. NO C/O PAIN. CALL LIGHT WITHIN REACH. WILL CPOC.
[2019-12-27 00:40] VITALS: BP 97/61
[2019-12-27 05:29] VITALS: BP 99/72
[2019-12-27 05:53] LABS: BASOPHILS 0.1 % (0-2); EOSINOPHILS 0 % (0-7); IMMATURE GRANULOCYTES 0.6 % (0-5); LYMPHOCYTES 6.7 % (15-50); MCH 29.2 pg (26.0-34.0); MCHC 31.8 g/dL (31.0-37.0); MCV 91.7 fL (80.0-100.0); MEAN PLATELET VOLUME 9.6 fL (7.4-10.4); MONOCYTES 3.6 % (2-11); PLATELET COUNT 343 10x3/uL (130-400); RDW 14.2 % (11.5-14.5)
[2019-12-27 06:20] LABS: ANION GAP 19.1 mmol/L (8-16); BILIRUBIN - TOTAL 0.33 mg/dL (0.2-1.3); CARBON DIOXIDE 18.9 mmol/L (21.0-32.0); CREATININE - SERUM 1.1 mg/dL (0.6-1.3); PROTEIN - SERUM 5.7 g/dL (6.4-8.2)
[2019-12-27 06:30] LABS: HEMATOCRIT 30.8 % (36.0-48.0); HEMOGLOBIN 9.8 g/dL (12-16); RBC 3.36 10x6/uL (4.00-5.40); WBC 18.8 10x3/uL (4.8-10.8)
[2019-12-27 08:40] VITALS: BP 94/59
--- NOTE | 2019-12-27 09:10 | NUR ---
[facility] VERONICA WITH DR. SANTAMARIA NOTIFIED.
[2019-12-27] MEDS ORDERED: PLAVIX75 MG PO (10:44)
[2019-12-27] MEDS ORDERED: BAYER CHEWABLE81 MG PO (11:01)
[2019-12-27] MEDS ORDERED: LIPITOR10 MG PO (11:06)
--- NOTE | 2019-12-27 13:00 | NUR ---
IV AND TELEMETRY DCD. DC PLANS GIVEN. UNDERSTANDING VOICED. ESCORTED TO CAR BY W/C.
--- NOTE | 2019-12-28 07:31 | MORECARE ---
CASE MANAGEMENT DISCHARGE SUMMARY PATIENT: BIA SMILEY UNIT: [id number] ADM DATE: 12/25/19 AGE: 64 : 57 SEX: F ROOM/BED: D.[facility] [place] AUTHOR: CRISTIAN NGUYỄN PHYSICIAN: REFERRING PHYSICIAN: SOFÍA SANTAMARIA MD DATE OF SERVICE: 12/28/19 Discharge Plan Patient Name: BIA SMILEY Facility: [facility]:[place] : 1955 Planned Disposition: Anticipated Discharge Date: Discharge Date: 12/27/2019 Expected LOS: 0 Initial Reviewer: [email or web address] Initial Review Date: 12/25/2019 Generated: 12/28/19 8:30 am Coverage Notice Reviewer: [email or web address] - Leticia White Notice Issued Date-Time: 12/26/2019 8:06 Notice Type: Medicare Outpatient Observation Notice Notice Delivered To: Patient Relationship to Patient: Self Oil Field Pumper Name: Delivery Method: HAND - Hand Delivered [place] Days: Prior Verbal Notification: Recipient Understood Notice: Yes Recipient Signature: Yes Med Rec Note Co-signed by Attending: Coverage Notice Comment: DELACRUZ explained, signed, given, copy placed in MR Patient Name: BIA SMILEY Page [phone] at 0731 All edits/amendments must be made on the electronic document DICTATION DATE: 12/28/19729 MARINE ENGINEERING TECHNICIANS: DARNELL 12/28/19729 RPT#: [id number] DC DATE:12/27/19 STATUS: DIS IN [place] [id number] [place] [address] END OF REPORT
--- NOTE | 2019-12-28 14:09 | OP ---
PATIENT NAME: BIA SMILEY MEDICAL RECORD: [id number] :57 LOCATION:D.M2 D.2117 ADMISSION DATE:12/25/19 SURGEON: CECILLE BROWN MD DATE OF OPERATION: 12/26/2019 PROCEDURE: Left heart catheterization, selective coronary angiography, plus FFR wire, plus PTCA stent in the LAD, and right femoral artery approach. CATHETERS: A 5-Malay sheath, 5/4 left and right Jasmyn, 5/4 pig. The procedure was well tolerated. The patient was returned to the lynne, sheath removed. ExoSeal device placed. FINDINGS: Left ventriculography in 30-degree LARA view: Normal wall motion, normal systolic function. CORONARY ANATOMY: LEFT MAIN: Left main is free of disease. LAD: Just distal to previously placed stents shows a questionable 70-80% stenosis. This confirmed flow restricted with a FFR wire 0.70. CIRCUMFLEX: Circumflex free of disease. RIGHT CORONARY ARTERY: Dominant artery, gives rise to PDA, free of disease. IMPRESSION: 70% to 80% stenosis, LAD. Confirmed via FFR wire. DESCRIPTION OF PROCEDURE: Using the FFR wire 3.5 x 15 mm Integrity nondrug eluting stent was inflated up to 14 atmospheres for 45 seconds. Final angiography shows excellent resolution of a 70% to 80% stenosis, no significant residual. MAYI flow was 3 throughout the procedure. Heparin and Integrilin were used during the case. Plavix was loaded in the lab. Sheath was closed with ExoSeal device. TRANSINT:[id number] Voice Confirmation ID: [id number] DOCUMENT ID: [id number] CECILLE BROWN MD at 1409 CC: [id number] DICTATION DATE: 12/26/19 1419 SILK SCREEN PRINTING RACKER: 12/26/19 2132 DIS IN 12/27/19 [id number] [place] [address]
== END 2019-12-27 13:20 | disposition home or self-care (01) ==
LOC: D.ER 09:43 → D.M2 11:32 → OBSVTIME 12:01 → D.M2 12-27 13:20
PROVIDERS: Family Medicine; Internal Medicine Cardiovascular Disease; Internal Medicine Interventional Cardiology; ADMIT Family Medicine; ATTEND Family Medicine
DX: I25.110 Atherosclerotic heart disease of native coronary artery with unstable angina pectoris (principal); E11.65 Type 2 diabetes mellitus with hyperglycemia; I10 Essential (primary) hypertension; K21.9 Gastro-esophageal reflux disease without esophagitis; F41.8 Other specified anxiety disorders; N95.9 Unspecified menopausal and perimenopausal disorder

== ENCOUNTER 2019-12-28 17:02 | Inpatient (IN) | payer MEDICARE ==
[~2019-12-28] VITALS: Ht 162.6 cm; Wt 74.1 kg
[~2019-12-28 17:02] MED LIST changes: +BAYER CHEWABLE81 MG PO; +COZAAR100 MG PO; +COZAAR25 MG PO; +CYCLOBENZAPRINE10 MG PO; +LIPITOR10 MG PO
[2019-12-28 17:31] LABS: BASOPHILS 0.1 % (0-2); EOSINOPHILS 0.4 % (0-7); IMMATURE GRANULOCYTES 0.2 % (0-5); LYMPHOCYTES 28.8 % (15-50); MCH 29.3 pg (26.0-34.0); MCHC 32.2 g/dL (31.0-37.0); MEAN PLATELET VOLUME 9.2 fL (7.4-10.4); MONOCYTES 11.2 % (2-11); NEUTROPHILS 59.3 % (40-80); PLATELET COUNT 276 10x3/uL (130-400); RDW 14.1 % (11.5-14.5)
[2019-12-28 17:34] LABS: RBC 2.56 10x6/uL (4.00-5.40); WBC 11.3 10x3/uL (4.8-10.8)
[2019-12-28 17:36] LABS: HEMATOCRIT 23.3 % (36.0-48.0); HEMOGLOBIN 7.5 g/dL (12-16)
--- NOTE | 2019-12-28 17:37 | NUR ---
CRITICAL LAB: [facility] 7.5 NOTIFIED
[2019-12-28 17:47] LABS: ANION GAP 17.2 mmol/L (8-16); CALCIUM 8.6 mg/dL (8.5-10.1); CARBON DIOXIDE 21.4 mmol/L (21.0-32.0); CREATININE - SERUM 1.1 mg/dL (0.6-1.3); POTASSIUM - SERUM 3.6 mmol/L (3.5-5.1)
[2019-12-28 17:51] LABS: ALBUMIN 3.3 g/dL (3.4-5.0); BILIRUBIN - TOTAL 0.34 mg/dL (0.2-1.3); PROTEIN - SERUM 6.1 g/dL (6.4-8.2)
[2019-12-28 18:10] LABS: APTT 26.5 SECONDS (22.8-39.4); INR 1.02 (0.85-1.17); PROTIME 13.4 SECONDS (11.6-15.0)
[2019-12-28 19:50] VITALS: BP 135/70
--- NOTE | 2019-12-28 19:50 | NUR ---
ONE UNIT PRBCS STARTED. INFORMED PATIENT S/S TRANSFUSION REACTION TO REPORT. VERBALIZED UNDERSTANDING
[2019-12-28 20:05] VITALS: BP 125/65
[2019-12-28 20:15] VITALS: BP 141/74
--- NOTE | 2019-12-28 20:49 | NUR ---
PATIENT ARRIVED TO UNIT. PATIENT IS ALERT AND ORIENTED, RESTING COMFORTABLY IN BED. RESPIRATIONS ARE EVEN AND UNLABORED. NO S/S OF DISTRESS. NO C/O PAIN. PATIENT SHOWED THIS NURSE HER RIGHT GROIN AREA. PATIENT HAS BRUISING TO THE UPPER THIGH AND RIGHT INNER THIGH. PATIENT UPSET STATING THAT SHE WAS TOLD SHE COULD HAVE BLEED OUT. MET PATIENT NEEDS. CALL LIGHT WITHIN REACH. WILL CPOC.
--- NOTE | 2019-12-28 23:10 | NUR ---
2ND UNIT OF PRBC INFUSING.
[2019-12-29 01:31] VITALS: BMI 27.5
[2019-12-29 04:00] VITALS: BP 135/75
[2019-12-29 04:22] LABS: BASOPHILS 0.1 % (0-2); EOSINOPHILS 0.5 % (0-7); IMMATURE GRANULOCYTES 0.2 % (0-5); LYMPHOCYTES 33.7 % (15-50); MCH 29.8 pg (26.0-34.0); MCHC 32.6 g/dL (31.0-37.0); MCV 91.3 fL (80.0-100.0); MONOCYTES 12.5 % (2-11); RDW 14.4 % (11.5-14.5); WBC 8.6 10x3/uL (4.8-10.8)
[2019-12-29 04:50] LABS: HEMATOCRIT 28.5 % (36.0-48.0); HEMOGLOBIN 9.3 g/dL (12-16); PLATELET COUNT 205 10x3/uL (130-400); RBC 3.12 10x6/uL (4.00-5.40)
[2019-12-29 04:56] LABS: ANION GAP 12.7 mmol/L (8-16); CALCIUM 8.1 mg/dL (8.5-10.1); CARBON DIOXIDE 22.3 mmol/L (21.0-32.0); CREATININE - SERUM 0.9 mg/dL (0.6-1.3); MAGNESIUM - SERUM 1.9 mg/dL (1.8-2.4); PHOSPHOROUS 2.8 mg/dL (2.5-4.9)
--- NOTE | 2019-12-29 07:15 | NUR ---
RECEIVED PT IN BED AAOX4 RESP UNLABORED SKIN W/D DENIES ANY NEEDS OR DISCOMFORT AT THIS TIME
[2019-12-29 07:32] VITALS: Ht 162.6 cm; Wt 74.1 kg
[2019-12-29 09:14] VITALS: BP 135/83
[2019-12-29 12:18] VITALS: BP 143/86
[2019-12-29 17:15] VITALS: BP 152/86
--- NOTE | 2019-12-29 19:30 | NUR ---
REPORT RECIEVED AND INITIAL ROUNDS COMPLETED. PT RESTING IN BED. ALERT/ORIENTED. CALL LIGHT IN REACH.
[2019-12-29 21:21] VITALS: BP 141/78
--- NOTE | 2019-12-29 22:00 | NUR ---
BEDTIME MED GIVEN. PT RESTING IN BED WITH NO NEEDS VOICED. CPOC.
[2019-12-30] VITALS: BP 131/74
[2019-12-30 04:49] VITALS: BP 139/73
[2019-12-30 05:12] LABS: BASOPHILS 0.1 % (0-2); EOSINOPHILS 1.2 % (0-7); HEMATOCRIT 28.1 % (36.0-48.0); HEMOGLOBIN 9.1 g/dL (12-16); IMMATURE GRANULOCYTES 0.4 % (0-5); MCH 29.7 pg (26.0-34.0); MCHC 32.4 g/dL (31.0-37.0); MCV 91.8 fL (80.0-100.0); MEAN PLATELET VOLUME 9.1 fL (7.4-10.4); MONOCYTES 9.2 % (2-11); NEUTROPHILS 47.1 % (40-80); PLATELET COUNT 214 10x3/uL (130-400); RBC 3.06 10x6/uL (4.00-5.40); RDW 14.4 % (11.5-14.5); WBC 7.6 10x3/uL (4.8-10.8)
[2019-12-30 05:29] LABS: CALC OSMOLALITY 277 mosm/kg (275-300); CALCIUM 8.3 mg/dL (8.5-10.1); CARBON DIOXIDE 25.6 mmol/L (21.0-32.0); CHLORIDE - SERUM 107 mmol/L (98-107); CREATININE - SERUM 0.7 mg/dL (0.6-1.3); GLUCOSE 107 mg/dL (74-106); PHOSPHOROUS 3.1 mg/dL (2.5-4.9); POTASSIUM - SERUM 4.1 mmol/L (3.5-5.1); SODIUM 140 mmol/L (136-145); eGFR NON AFRICAN AMERICAN 90 mL/min (90-120)
[2019-12-30 05:34] LABS: UREA NITROGEN 9 mg/dL (7-18)
--- NOTE | 2019-12-30 08:56 | NUR ---
PT ALERT AND ORIENTED, LYING IN BED PER BEDREST ORDER. PT IS PLESANT BUT TIRED OF BEING IN THE HOSPITAL. SHE IS HOPEFUL TO BE ALOUD UP TODAY WHEN THE ROUNDS. STATES HER LEG FEELS MUCH BETTER THAN IT HAS PREVIOUSLY. WILL INFORM NO COMPLAINTS THIS AM, ALL QUESTIONS ANSWERED TO THE BEST OF MY ABILITY. CL IN REACH, SRX2.
[2019-12-30 10:44] VITALS: BP 122/74
--- NOTE | 2019-12-30 12:09 | NUR ---
PT AWAKE AND ORIENTED, LYING IN BED WAITING ON CARDIOLOGY TO SEE HER TO DETERMINE WHETHER OR NOT SHE CAN GET UP. STILL HOPEFULL FOR A SHOWER TODAY, INFORMED HER WOULD ACCOMIDATE WITHA BED BATH IF SHOWER WASN'T AN OTPION. CL IN REACH, SR2.
--- NOTE | 2019-12-30 12:47 | NUR ---
REMOVED SHAH PER MD ORDER.
[2019-12-30 12:59] VITALS: BP 142/81
--- NOTE | 2019-12-30 14:28 | NUR ---
PT ESCORTED OUT VIA WHEELCHIAR TO POV DRIVEN BY SON
--- NOTE | 2019-12-31 09:28 | MORECARE ---
CASE MANAGEMENT DISCHARGE SUMMARY PATIENT: BIA SMILEY UNIT: [id number] ADM DATE: 12/29/19 AGE: 64 : 57 SEX: F ROOM/BED: D.2114 AUTHOR: CRISTIAN NGUYỄN PHYSICIAN: REFERRING PHYSICIAN: SOFÍA SANTAMARIA MD DATE OF SERVICE: 12/31/19 Discharge Plan Patient Name: BIA SMILEY [facility] [facility] 1955 Planned Disposition: Home Anticipated Discharge Date: Discharge Date: 12/30/2019 Expected LOS: Initial Reviewer: [email or web address] Initial Review Date: 12/28/2019 Generated: 12/31/19 10:28 am Patient Name: BIA SMILEY Page [id number] at 0928 All edits/amendments must be made on the electronic document DICTATION DATE: 12/31/19927 ASSISTANT STORE LEADER: DARNELL 12/31/19927 RPT#: [id number] DC DATE:12/30/19 STATUS: DIS IN [facility] [address] [place] [address] END OF REPORT
--- NOTE | 2019-12-31 09:36 | MORECARE ---
CASE MANAGEMENT DISCHARGE SUMMARY PATIENT: BIA SMILEY UNIT: [id number] ADM DATE: 12/29/19 AGE: 64 : 57 SEX: F ROOM/BED: D.1868 AUTHOR: GOPI,DOC PHYSICIAN: REFERRING PHYSICIAN: SOFÍA SANTAMARIA MD DATE OF SERVICE: 12/31/19 Discharge Plan Patient Name: BIA SMILEY Facility: [facility]:[place] : 1955 Planned Disposition: Home Anticipated Discharge Date: Discharge Date: 12/30/2019 Expected LOS: Initial Reviewer: [email or web address] Initial Review Date: 12/28/2019 Generated: 12/31/19 10:35 am Comments DCP- Discharge Planning Updated by [email or web address]: María Licona on 12/31/19 8:[address] LATE ENTRY 12/30/19 Patient Name: BIA SMILEY Admission Status: ER Accout number: [id number] Admission Date: 12-29-2019 : 1955 Admission Diagnosis: Attending: SOFÍA SANTAMARIA Current LOS: 1 Anticipated DC Date: Planned Disposition: Home Primary Insurance: MEDICARE A & B Discharge Planning Comments: CM MET WITH PATIENT TO DISCUSS DISCHARGE PLANNING AFTER OBTAINING VERBAL CONSENT. PATIENT LIVES AT HOME WITH HER BOYFRIEND AND PLANS TO RETURN THERE UPON DISCHARGE. PATIENT STATES THAT SHE HAS A CANE AND SHE DENIES ANY OTHER DME NEEDS. PATIENT DENIES ANY HOME HEALTH SERVICES. PATIENT WILL HAVE FAMILY TO PICK HER UP ON DISCHARGE. PATIENT DENIES ANY D/C NEEDS. CM WILL CONTINUE TO FOLLOW AND ASSIST NEEDED WITH DISCHARGE PLANNING / NEEDS. Fur Examiner: María Licona DCPIA - Discharge Planning Initial Assessment Updated by [email or web address]: María Licona on 12/31/19 9:31 am * Is the patient Alert and Oriented? Yes * How many steps to enter\exit or inside your home? * PCP [facility] * Pharmacy [address] * Preadmission Environment Home with Family * ADLs Independent * Equipment Cane * List name and contact numbers for known caregivers / representatives who currently or will assist patient after discharge: GISELL SMILEY - [facility]- [phone] * Verbal permission to speak to the caregivers and representatives has been obtained from the patient. Yes * Community resources currently utilized None * Additional services required to return to the preadmission environment? No * Can the patient safely return to the preadmission environment? Yes * Has this patient been hospitalized within the prior 30 days at any hospital? No Last DP export: 12/31/19 8:28 am Patient Name: BIA SMILEY Page [phone] at 0936 All edits/amendments must be made on the electronic document DICTATION DATE: 12/31/19934 COLD STRIP FEEDER: DARNELL 12/31/19934 RPT#: [id number] DC DATE:12/30/19 STATUS: DIS [facility] [address] [place] [address] END OF REPORT
== END 2019-12-30 14:28 | disposition home or self-care (01) | DRG 300 ==
LOC: D.ER 17:02 → OBSVTIME 19:11 → D.M2 19:11
PROVIDERS: Family Medicine; Family Medicine Adult Medicine; ADMIT Family Medicine; ATTEND Family Medicine
DX: I72.4 Aneurysm of artery of lower extremity (principal); L76.32 Postprocedural hematoma of skin and subcutaneous tissue following other procedure; Z68.41 Body mass index [BMI] 40.0-44.9, adult; D62 Acute posthemorrhagic anemia; K21.9 Gastro-esophageal reflux disease without esophagitis; I25.10 Atherosclerotic heart disease of native coronary artery without angina pectoris; E78.5 Hyperlipidemia, unspecified; I10 Essential (primary) hypertension; F41.8 Other specified anxiety disorders; E11.9 Type 2 diabetes mellitus without complications; Y83.9 Surgical procedure, unspecified as the cause of abnormal reaction of the patient, or of later complication, without mention of misadventure at the time of the procedure; E66.01 Morbid (severe) obesity due to excess calories

== ENCOUNTER → 2020-05-27 10:41 | Outpatient (CLI) | payer MEDICARE, MEDICAID ==
[2019-12-29 07:32] VITALS: BMI 27.5
--- NOTE | ~2020-05-27 | HEMODYNAMI ---
PATIENT:BIA SMILEY MEDICAL RECORD: [id number] : 57 [id number] ADMISSION DATE: 05/27/20 Generatedon:05/27/202011:28 Patient name: BIA SMILEY Patient #: [id number] SSN: [id number] : 1955 Date of study: 05/27/2020 Page: Of Hemodynamic Procedure Report Patient Data Patient Demographics Procedure consent was obtained First Name: BIA Gender: Female Last Name: SHERICE : 1955 Middle Initial: M Age: 64 year(s) Patient #: [id number] Race: SSN: [id number] Additional ID: [id number] Contact details [address]: [address] [place] [address] State: [place] City: [place] Zip code: [address] Past Medical History Allergies Allergen Reaction Date Comments Reported Sulfa drugs 12/26/2019 Other allergy 12/26/2019 ampicillian Admission Admission Data Admission Date: 05/27/2020 Admission Time: 10:41 Procedure Procedure Types Cath Procedure Peripheral Cath Diagnostic Procedure Hand Cultivator Peripheral Procedures Miscellaneous Aspiration/Injection (Joint) Procedure Description Procedure Date Procedure Date: 05/27/2020 Procedure Start Time: 11:17 Procedure Staff Name Function Iron Houston MD Performing Physician Beatrice Aparicio RT Want Ad Supervisor Dieudonne Feng RT Want Ad Supervisor Procedure Data Cath Procedure Fluoroscopy Diagnostic fluoroscopy Total fluoroscopy Time: 1.1 time: 1.1 min min Diagnostic fluoroscopy Total fluoroscopy dose: 21 dose: 21 mGy mGy Contrast Material Contrast Material Type Amount (ml) Isovue 300 8 Hemodynamics Rest Pre Cath Intra NCS Post Cath Procedure Log Time Note 10:56:35 SAFE-T PLUS MYELOGRAM TRAY opened to sterile field. 11:12:50 Dieudonne Feng RT (R) (CV) sent for patient. Start room use. 11:12:59 Time tracking: Regular hours (M-F 7:00 - 5:00) 11:13:15 Patient received from Other to IR Alert and oriented. Tansferred to table in Supine position. 11:13:23 Signed procedure consent form obtained from patient. 11:13:25 Correct patient and procedure confirmed by team. 11:13:26 Full Disclosure recording started 11:13:26 - 11:13:40 ALLERGIES TO SULFA 11:13:44 Pre-procedure instructions explained to patient. 11:13:45 Pre-op teaching completed and patient verbalized understanding. 11:13:48 Is patient on blood thinner?No 11:13:56 Left Hip was prepped with betadine and draped in sterile fashion. 11:14:05 SAFE-T PLUS MYELOGRAM TRAY opened to sterile field. 11:16:35 Physician arrived 11:16:35 --------ALL STOP TIME OUT------ 11:16:36 Final Timeout: patient, procedure, and site verified with staff and physician. All members of the team are in agreement. 11:16:41 Left groin site verified by team. 11:16:51 Sedation plan: Local Anesthetic Medication:Lidocaine 11:17:07 Procedure started. 11:17:17 Local anesthetic to Left Hip with Lidocaine 1% by Iron Houston MD.INITIAL ACCESS ONLY 11:26:17 Procedure ended.(Physican Out) 11:26:47 SITE STABLE BANDAIDE APPLIED LT HIP PT SENT HOME 11:26:54 Fluoroscopy time 01.10 minutes. 11:27:10 Flurop Dose total: 21 11:27:10 Fluoroscopy dose: 21 mGy 11:27:50 Contrast amount:Isovue 300 8ml. Device Usage Item Name Manufacture Quantity Catalog Hospital Part Current Minimal Lot# / Number Charge Number Stock Stock Serial# Code SAFE-T Care[employer]usion 2 [id number] PLUS MYELOGRAM TRAY Signature Audit [place] Stage Time Signature Unsigned Intra-Procedure 05/27/2020 Dieudonne 11:28:11 AM [facility] RT (R) (CV) [facility] [address] [place] [address]
== END | disposition home or self-care (01) ==
LOC: D.RAD 10:41
PROVIDERS: ATTEND Orthopaedic Surgery
DX: M16.12 Unilateral primary osteoarthritis, left hip (principal)

== ENCOUNTER → 2020-06-11 18:04 | Outpatient (CLI) | payer MEDICARE, MEDICAID ==
[2019-12-29 07:32] VITALS: BMI 27.5
== END | disposition home or self-care (01) ==
LOC: D.LABREF 18:04
PROVIDERS: ATTEND Orthopaedic Surgery
DX: M16.12 Unilateral primary osteoarthritis, left hip (principal)